=== PATIENT | male | born 1955 | race Caucasian/White ===

== ENCOUNTER 2017-06-18 04:05 | Emergency (ER) | payer OTHER ==
[2017-06-18] MEDS ORDERED: KETOROLAC 60 MG/2 ML VIAL IVP STA (04:17)
[2017-06-18] MEDS ORDERED: SODIUM CHLORIDE 0.9% 1,000 ML IV ONE (04:17)
--- NOTE | 2017-06-18 04:20 | ED Physician Documentation ---
PD HPI ABD PAIN - Stated complaint Stated Complaint: LT FLANK PAIN - Chief complaint Chief Complaint: General - History obtained from History obtained from: Patient, Family - History of Present Illness Timing - duration: Hours Timing - details: Abrupt onset, Still present Quality: Sharp, Pain Location: LUQ Radiation: Left flank Improved by: Laying still Worsened by: Moving, Position, Palpation Associated symptoms: Nausea. No: Vomiting Similar symptoms before: Diagnosis (kidney stone) Recently seen: Not recently seen - Additional information Additional information: 61-year-old male with a prior history of kidney stone went to get out of bed this morning and had severe pain in his left flank. This pain reminded him of kidney stone. He has had pain worse with movement. He states that he felt some of this pain at work today but this did not seem to continue to bother him. 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 Review of Systems Constitutional: denies: Fever Ears: denies: Ear pain Nose: denies: Congestion Throat: denies: Sore throat Respiratory: denies: Cough GI: reports: Abdominal Pain, Nausea. denies: Vomiting : denies: Dysuria, Frequency Skin: denies: Rash Musculoskeletal: reports: Back pain. denies: Neck pain, Extremity pain PD PAST MEDICAL HISTORY - Past Medical History Cardiovascular: Hypertension Respiratory: None Neuro: None Endocrine/Autoimmune: None GI: None : None HEENT: None Psych: None Musculoskeletal: None Derm: None - Past Surgical History Past Surgical History: No - Present Medications Home Medications: Ambulatory Orders Medication Instructions Recorded Confirmed Cyclobenzaprine [Flexeril] 10 mg PO TID PRN #20 tablet 06/18/17 Lisinopril 1 tab PO DAILY 06/18/17 06/18/17 - Allergies Allergies/Adverse Reactions: Allergies Allergy/AdvReac Type Severity Reaction Status Date / Time No Known Drug Allergies Allergy Verified 06/18/17 04:12 - Social History Does the pt smoke?: No Smoking Status: Never smoker Does the pt drink ETOH?: Yes Does the pt have substance abuse?: No - Immunizations Immunizations are current?: Yes PD ED PE NORMAL - Vitals Vital signs reviewed: Yes (hypertension ) - General General: Well developed/nourished, Other (uncomfortable male standing at the bedside is careful about the way he gets onto the bed. ) - HEENT HEENT: Atraumatic, PERRL - Neck Neck: Supple, no meningeal sign - Cardiac Cardiac: RRR, No murmur - Respiratory Respiratory: No respiratory distress, Clear bilaterally - Abdomen Abdomen: Soft, Non tender - Back Back: No CVA TTP. No: Other (left paraspinous muscle tenderness is minimal . ) - Derm Derm: Normal color, No rash - Extremities Extremities: No deformity, No edema - Neuro Neuro: No motor deficit, No sensory deficit - Psych Psych: Normal mood, Normal affect Results - Vitals Vitals: Vital Signs - 24 hr 06/18/17 04:11 Temperature 37.1 C Heart Rate 85 Respiratory 18 Rate Blood Pressure 170/111 H O2 Saturation 98 Oxygen O2 Source Room air - Labs Labs: Laboratory Tests 06/18/17 06/18/17 06/18/17 04:20 04:20 04:50 WBC 5.7 RBC 4.75 Hgb 14.6 Hct 41.8 L MCV 88.1 MCH 30.7 MCHC 34.8 RDW 13.0 Plt Count 204 MPV 7.8 Neut # 3.4 Lymph # 1.3 L [place] # 0.5 Eos # 0.3 Baso # 0.0 Absolute Nucleated RBC 0.00 Nucleated RBCs 0.0 Sodium 138 Potassium 4.4 Chloride 109 Carbon Dioxide 22 Anion Gap 7.0 BUN 30 H Creatinine 0.9 Estimated GFR (MDRD) 86 L Glucose 101 H Calcium 9.1 Total Bilirubin 1.0 AST 19 ALT 20 Alkaline Phosphatase 59 Total Protein 6.6 L Albumin 4.1 Globulin 2.5 Albumin/Globulin Ratio 1.6 Lipase 39 Urine Color YELLOW Urine Clarity CLEAR Urine pH 6.5 Ur Specific [place] 1.015 Urine Protein NEGATIVE Urine Glucose (UA) NEGATIVE Urine Ketones NEGATIVE Urine Occult Blood SMALL H Urine Nitrite NEGATIVE Urine Bilirubin NEGATIVE Urine Urobilinogen 0.2 (NORMAL) Ur Leukocyte Esterase NEGATIVE Urine RBC None Seen Urine WBC 0-3 Ur Squamous Epith Cells NONE SEEN Urine Bacteria None Seen Ur Microscopic Review INDICATED Urine Culture Comments NOT INDICATED - Rads (name of study) CT abd/pel Radiology: Prelim report reviewed (Impression: 1. Small nonobstructing left renal stones without ureteral stone or evidence of obstructive uropathy. 2.Severe left colon diverticulosis without definite acute diverticulitis. Apparent wall thickening of the sigmoid colon is probably related to some degree of chronic diverticulitis in this patient. Consider follow-up colonoscopy to exclude underlying mass in the region. 3. Emphysema. 4. Small supra umbilical fat-containing anterior abdominal wall hernias without apparent complication.), EMP read indepedently, See rad report Procedures - Bedside sono Bedside sono by EMP: With use of bedside ultrasound the left kidney is imaged and there is minimal hydronephrosis and the kidney is sonographically nontender. PD MEDICAL DECISION MAKING - ED course Complexity details: reviewed old records, reviewed results, re-evaluated patient , considered differential, d/w patient, d/w family ED course: 61-year-old male with a prior history of renal lithiasis comes into the emergency department today with symptoms he believes are similar to what he has had previously with a kidney stone. I did note the patient has what appears to be pain with movement and has only mild hydronephrosis on the left side on bedside ultrasound. He does not have much in the way of point tenderness to his back. CT scan of the abdomen and pelvis is obtained to differentiate between renal lithiasis and back pain. An IV is begun the patient given 30 mg of Toradol IV and a liter of saline. The patient has some relief of his pain and it is now clearly evident that the pain is related to movement and located on the left lower back over the iliac crest. The patient appears mildly dehydrated with an elevated BUN and he is administered dexamethasone in addition to the saline. He is dispensed 6 hydrocodone. Departure - Departure Disposition: 01 Home, Self Care Clinical Impression: Lumbar paraspinal muscle spasm, Dehydration Condition: Stable Instructions: ED Spasm Back No Trauma, ED Dehydration Follow-Up: [facility] [Provider Group] Prescriptions: Cyclobenzaprine [Flexeril] 10 mg PO TID PRN #20 tablet PRN Reason: Spasms
[2017-06-18 04:28] LABS: BASOPHILS % (AUTO) 0.9 %; EOSINOPHILS # (AUTO) 0.3 10^3/uL (0.0-0.7); EOSINOPHILS % (AUTO) 6.1 %; HCT - HEMATOCRIT 41.8 % (42.0-52.0); HGB - HEMOGLOBIN 14.6 g/dL (14.0-18.0); LYMPHOCYTES # (AUTO) 1.3 10^3/uL (1.5-3.5); LYMPHOCYTES % (AUTO) 23.5 %; MEAN CORPUSCULAR HEMOGLOBIN 30.7 pg (27.0-31.0); MEAN CORPUSCULAR HGB CONC 34.8 g/dL (32.0-36.0); MEAN CORPUSCULAR VOLUME 88.1 fL (80.0-94.0); MEAN PLATELET VOLUME 7.8 fL (7.4-11.4); MONOCYTES # (AUTO) 0.5 10^3/uL (0.0-1.0); MONOCYTES % (AUTO) 9.6 %; NEUTROPHILS # (AUTO) 3.4 10^3/uL (1.5-6.6); NEUTROPHILS % (AUTO) 59.9 %; RED BLOOD COUNT 4.75 10^6/uL (4.70-6.10); UNCORRECTED WHITE BLOOD COUNT 5.7 x10^3/uL; WHITE BLOOD COUNT 5.7 x10^3/uL (4.8-10.8)
[2017-06-18] MEDS ORDERED: KETOROLAC 30 MG/ML VIAL ONE (04:30)
[2017-06-18 04:39] LABS: ALBUMIN/GLOBULIN RATIO 1.6 (1.0-2.2); CALCIUM 9.1 mg/dL (8.5-10.3); CREATININE 0.9 mg/dL (0.6-1.2); POTASSIUM 4.4 mmol/L (3.5-5.0); TOTAL PROTEIN 6.6 g/dL (6.7-8.2)
[2017-06-18 05:02] LABS: BILIRUBIN,URINE NEGATIVE (NEGATIVE); PH,URINE 6.5 PH (5.0-7.5); UA w/ MICROSCOPIC CHARGE YES
--- NOTE | 2017-06-18 05:05 | CT Preliminary Report ---
Exam: CT Abdomen/Pelvis W/O IMPRESSION: 1. Small nonobstructing left renal stones without ureteral stone or evidence of obstructive uropathy. 2. Severe left colon diverticulosis without definite acute diverticulitis. Apparent wall thickening i n the sigmoid colon is probably related to some degree of chronic diverticulitis in this patient. 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 3. Emphysema. 4. Small supra umbilical fat-containing anterior abdominal wall hernias without apparent complication . [facility] SITE ID: [id number]
[2017-06-18] MEDS ORDERED: DEXAMETHASONE 10 MG/ML VIAL IVP STA (05:08)
--- NOTE | 2017-06-18 05:13 | CT Report ---
EXAM: CT ABDOMEN AND PELVIS (CT KUB) EXAM DATE: 06/18/2017 04:50 AM. CLINICAL HISTORY: Left flank pain. COMPARISONS: None. TECHNIQUE: Routine axial helical CT imaging was performed through the abdomen and pelvis without IV c ontrast. Reconstructions: Coronal and sagittal. In accordance with CT protocol optimization, one or more of the following dose reduction techniques w ere utilized for this exam: automated exposure control, adjustment of mA and/or KV based on patient s ize, or use of iterative reconstructive technique. FINDINGS: Lung Bases: Emphysema. Right Kidney/Ureter: No stones, hydronephrosis, or hydroureter. No perinephric fat stranding. Left Kidney/Ureter: Couple of tiny nonobstructing stones. No ureteral stone or hydronephrosis. Scatte red probable small cysts, poorly evaluated on this non-IV contrast study. Other Solid Organs: Noncontrast images of the solid organs are grossly unremarkable with incidental n ote of calcified granulomas in the liver and spleen as well as tiny specifically benign hypodense foc i in the liver. Gallbladder/Bile Ducts: Unremarkable. Peritoneal Cavity: No free fluid, free air or kevin adenopathy. Bowel is grossly unremarkable with th e exception of severe left colon diverticulosis. No definitive acute diverticulitis with apparent wal l thickening in the sigmoid colon. Pelvic Organs: No bladder stones or wall thickening. Noncontrast images of the visualized pelvic orga ns are unremarkable. Vasculature: Unremarkable. Other: Small anterior abdominal wall supraumbilical fat-containing hernias without apparent complicat ion. IMPRESSION: 1. Small nonobstructing left renal stones without ureteral stone or evidence of obstructive uropathy. 2. Severe left colon diverticulosis without definite acute diverticulitis. Apparent wall thickening i n the sigmoid colon is probably related to some degree of chronic diverticulitis in this patient. 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 3. Emphysema. 4. Small supra umbilical fat-containing anterior abdominal wall hernias without apparent complication . [facility] Referring Provider Line: [phone] SITE ID: [id number]
[2017-06-18] MEDS ORDERED: DEXAMETHASONE 10 MG/ML VIAL ONE (05:18)
[2017-06-18 05:26] LABS: UR CULTURE IF IND NOT INDICATED; WBC,URINE 0-3 /HPF (0-3)
[2017-06-18] MEDS ORDERED: HYDROcod/ACET 5/325 Prepack 6 PO ONE ×2 (05:29→05:45)
[2017-06-18 05:48] VITALS: BP 168/100
== END 2017-06-18 05:48 | disposition home or self-care (01) ==
LOC: ED 04:05
DX: M62.830 Muscle spasm of back (principal); E86.0 Dehydration; I10 Essential (primary) hypertension; Z87.442 Personal history of urinary calculi
CPT/HCPCS: 36415; 74176; 80053; 81001; 81003; 83690; 85025; 87086; 96374; 96375; 99283; 99284

== ENCOUNTER 2019-12-30 04:25 | Emergency (ER) | payer OTHER ==
[2019-12-30] MEDS ORDERED: ONDANSETRON ODT 4 MG TABLET TL STA (04:39)
[2019-12-30] MEDS ORDERED: KETOROLAC 30 MG/ML VIAL IVP STA (04:42)
[2019-12-30] MEDS ORDERED: SODIUM CHLORIDE 0.9% 1,000 ML IV ONE (04:42)
--- NOTE | 2019-12-30 04:46 | ED Physician Documentation ---
PD HPI ABD PAIN - Stated complaint Stated Complaint: SIDE PX - Chief complaint Chief Complaint: Abd Pain - History obtained from History obtained from: Patient - History of Present Illness Timing - onset: Enter time (1700), Yesterday Timing - duration: Hours Timing - details: Gradual onset, Still present, Waxing and waning Quality: Sharp, Pain Location: LUQ Radiation: Left flank Improved by: Other (nothing) Worsened by: Other (nothing) Associated symptoms: Nausea, Vomiting. 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 He thought this was similar to what is had previously with a kidney stone and he has had spikes in his pain.Early this morning he became very uncomfortable and has started vomiting.He does not have any specific modifying factors for the pain. Review of Systems Constitutional: denies: Fever, Chills, Myalgias, Fatigue Eyes: denies: Decreased vision Ears: denies: Ear pain Nose: denies: Rhinorrhea / runny nose, Congestion Throat: denies: Sore throat Cardiac: denies: Chest pain / pressure, Palpitations Respiratory: denies: Dyspnea, Cough, Wheezing GI: reports: Abdominal Pain, Nausea, Vomiting. denies: Constipation, Diarrhea : denies: Dysuria, Frequency Skin: denies: Rash Musculoskeletal: reports: Back pain. denies: Neck pain, Extremity pain Neurologic: denies: Generalized weakness, Focal weakness, Numbness PD PAST MEDICAL HISTORY - Past Medical History Cardiovascular: Hypertension Respiratory: None Endocrine/Autoimmune: None GI: None : None HEENT: None Psych: None Musculoskeletal: None Derm: None - Past Surgical History Past Surgical History: No - Present Medications Home Medications: Ambulatory Orders Medication Instructions Recorded Confirmed lisinopriL [Lisinopril] 1 tab PO DAILY 06/18/17 06/18/17 Hydrocodone/Acetaminophen 1 - 2 each PO Q6H PRN #14 tablet 12/30/19 [Hydrocodon-Acetaminophen 5-325] Ondansetron Odt [Zofran] 4 mg TL Q6H PRN #10 tablet 12/30/19 - Allergies Allergies/Adverse Reactions: Allergies Allergy/AdvReac Type Severity Reaction Status Date / Time No Known Drug Allergies Allergy Verified 06/18/17 04:12 - Social History Does the pt smoke?: No Smoking Status: Never smoker Does the pt drink ETOH?: Yes Does the pt have substance abuse?: No - Immunizations Immunizations are current?: Yes PD ED PE NORMAL - Vitals Vital signs reviewed: Yes (hypertensive) - General General: Alert and oriented X 3, Well developed/nourished, Other (64 y/o male appears to be in pain with grimmace and vomiting. ) - HEENT HEENT: Atraumatic, PERRL, EOMI - Neck Neck: Supple, no meningeal sign, No bony TTP - Cardiac Cardiac: RRR, No murmur - Respiratory Respiratory: No respiratory distress, Clear bilaterally - Abdomen Abdomen: Normal bowel sounds, Soft, Non tender, Non distended, No organomegaly - Back Back: No CVA TTP, No spinal TTP - Derm Derm: Normal color, Warm and dry, No rash - Extremities Extremities: No deformity, No edema - Neuro Neuro: Alert and oriented X 3, performance test architect 2-12 intact, No motor deficit, No sensory deficit, Normal speech Eye Opening: Spontaneous Motor: Obeys Commands Verbal: Oriented GCS Score: 15 - Psych Psych: Normal mood, Normal affect Results - Vitals Vitals: Vital Signs - 24 hr 12/30/19 04:34 Temperature 36.6 C Heart Rate 80 Respiratory 18 Rate Blood Pressure 159/103 H O2 Saturation 100 Oxygen O2 Source Room air - Labs Labs: Laboratory Tests 12/30/19 12/30/19 12/30/19 04:50 04:50 05:03 WBC 5.1 RBC 4.83 Hgb 14.8 Hct 44.5 MCV 92.1 MCH 30.6 MCHC 33.3 RDW 12.7 Plt Count 224 MPV 10.5 Neut # (Auto) 3.4 Lymph # (Auto) 0.9 L [place] # (Auto) 0.6 Eos # (Auto) 0.2 Baso # (Auto) 0.0 Absolute Nucleated RBC 0.00 Nucleated RBC % 0.0 Sodium 136 Potassium 4.3 Chloride 106 Carbon Dioxide 23 Anion Gap 7.0 BUN 22 H Creatinine 0.8 Estimated GFR (MDRD) 97 Glucose 98 Calcium 9.5 Total Bilirubin 0.7 AST 21 ALT 24 Alkaline Phosphatase 69 Total Protein 6.8 Albumin 4.2 Globulin 2.6 Albumin/Globulin Ratio 1.6 Lipase 66 H Urine Color YELLOW Urine Clarity CLEAR Urine pH 6.0 Ur Specific [place] 1.010 Urine Protein NEGATIVE Urine Glucose (UA) NEGATIVE Urine Ketones NEGATIVE Urine Occult Blood MODERATE H Urine Nitrite NEGATIVE Urine Bilirubin NEGATIVE Urine Urobilinogen 0.2 (NORMAL) Ur Leukocyte Esterase NEGATIVE Urine RBC 6-10 H Urine WBC 0-3 Ur Squamous Epith Cells NONE SEEN Urine Bacteria None Seen Ur Microscopic Review INDICATED Urine Culture Comments NOT INDICATED - Rads (name of study) CT ab/pel w Radiology: Prelim report reviewed (Impression: 4 mm left ureterovesicular junction calculus with mild hydronephrosis and perinephric periureteral edema. 2 Diverticulosis. 3 Multiple bilateral renal cysts, left greater than right.), EMP read indepedently, See rad report Procedures - Bedside sono Bedside sono by EMP: With use of bedside ultrasound the left kidney is imaged it is sonographically nontender there is evidence of hydronephrosis present. PD MEDICAL DECISION MAKING - ED course Complexity details: reviewed old records, reviewed results, re-evaluated patient, considered differential, d/w patient ED course: 64-year-old male with a prior history of kidney stone appears to have symptoms consistent with kidney stone again. He does have hydronephrosis with a nontender kidney on the left side on bedside ultrasound exam and I suspect ureteral lithiasis. An IV is begun he is given a liter of saline 30 mg of Toradol and is given for milligrams of Zofran TL.He has good relief of this initially and the CT scan demonstrates a 4 mm stone at the ureterovesicular junction on the left side. Departure - Departure Disposition: 01 Home, Self Care Clinical Impression: Ureterolithiasis Condition: Stable Instructions: ED Stone Renal W Colic Follow-Up: Your, doctor [Other] Mike Magallanes MD [Provider Admit Priv/Credential] - Prescriptions: Hydrocodone/Acetaminophen [Hydrocodon-Acetaminophen 5-325] 1 - 2 each PO Q6H PRN #14 tablet PRN Reason: pain Ondansetron Odt [Zofran] 4 mg TL Q6H PRN #10 tablet PRN Reason: Nausea / Vomiting
[2019-12-30 05:15] LABS: ALBUMIN 4.2 g/dL (3.2-5.5); ALBUMIN/GLOBULIN RATIO 1.6 (1.0-2.2); BILIRUBIN,TOTAL 0.7 mg/dL (0.2-1.0); CALCIUM 9.5 mg/dL (8.5-10.3); CREATININE 0.8 mg/dL (0.6-1.2); TOTAL PROTEIN 6.8 g/dL (6.7-8.2)
[2019-12-30 05:20] LABS: BILIRUBIN,URINE NEGATIVE (NEGATIVE); GLUCOSE, URINE (UA) NEGATIVE (NEGATIVE); KETONES,URINE (UA) NEGATIVE (NEGATIVE); LEUKOCYTE ESTERASE, URINE NEGATIVE (NEGATIVE); NITRITE,URINE NEGATIVE (NEGATIVE); OCCULT BLOOD,URINE MODERATE (NEGATIVE); PROTEIN,URINE NEGATIVE (NEGATIVE); UROBILINOGEN,URINE 0.2 (NORMAL) E.U./dL (NORMAL)
[2019-12-30 05:23] LABS: CLARITY,URINE CLEAR (CLEAR)
--- NOTE | 2019-12-30 05:23 | CT Report ---
Reason: left flank pain Procedure Date: 12/30/2019 Accession Number: [id number] / [id number] Procedure: CT - Abdomen/Pelvis WO CPT Code: Final Report FULL RESULT: EXAM: CT ABDOMEN AND PELVIS (CT KUB) EXAM DATE: 12/30/2019 05:05 AM. CLINICAL HISTORY: Left flank pain. COMPARISONS: ABDOMEN/PELVIS W/O 06/18/2017 4:43 AM. TECHNIQUE: Routine axial helical CT imaging was performed through the abdomen and pelvis without IV contrast. Reconstructions: Coronal and sagittal. In accordance with CT protocol optimization, one or more of the following dose reduction techniques were utilized for this exam: automated exposure control, adjustment of mA and/or KV based on patient size, or use of iterative reconstructive technique. FINDINGS: The lung bases are clear. The visible heart is normal in size. There is no pericardial effusion. Calcified granulomas are seen in the liver and spleen. Multiple small hypoattenuating lesions are seen in the liver, which are too small to characterize but likely represent small cysts. The largest is located at the inferior right hepatic lobe and measures 2 cm, previously 1.4 cm. The gallbladder is normal. There is no biliary dilatation. The unenhanced pancreas and adrenal glands are within normal limits. A 2.2 cm exophytic left renal cyst is again seen. Calcifications along the periphery of the cysts have increased in size. Multiple additional small partially exophytic renal lesions are seen of various attenuations, which may represent proteinaceous or hemorrhagic cysts. A mildly hyperattenuating lesion measuring 2.1 cm in the upper pole of the left kidney has a faint peripheral calcification. A 7 mm exophytic isodense lesion is seen arising from the lower pole of the right kidney. No renal calculi seen. There is no right hydronephrosis. Mild left hydronephrosis and hydroureter seen with associated perinephric and ureteral edema. There is a 4 mm calculus at the left ureterovesicular junction. The bladder is otherwise normal and without wall. Diverticula are seen throughout the colon without evidence of diverticulitis. The appendix is not visible. No pericecal edema is seen. The intestines are normal in caliber and position. There is no evidence of bowel obstruction, free intraperitoneal air, or ascites. A fat-containing umbilical hernia is incidentally seen. There is no lymphadenopathy. The abdominal aorta is normal in course and caliber with minimal atherosclerotic plaque calcifications. The prostate gland is normal. There is no free pelvic fluid. No suspicious lytic or blastic lesions are seen. The visible spinal alignment is maintained. IMPRESSION: 1. 4 mm left ureterovesicular junction calculus with mild right hydroureteronephrosis and perinephric/periureteral edema. 2. Diverticulosis. 3. Multiple bilateral renal cysts, left greater than right. [facility]
[2019-12-30 05:27] LABS: BACTERIA,URINE None Seen /HPF (None Seen); SQUAMOUS EPITHELIAL CELL,UR NONE SEEN (<= Few)
[2019-12-30 05:46] LABS: BASOPHILS % (AUTO) 0.6 %; EOSINOPHILS # (AUTO) 0.2 10^3/uL (0.0-0.7); EOSINOPHILS % (AUTO) 4.1 %; HGB - HEMOGLOBIN 14.8 g/dL (14.0-18.0); LYMPHOCYTES # (AUTO) 0.9 10^3/uL (1.5-3.5); LYMPHOCYTES % (AUTO) 17.9 %; MEAN CORPUSCULAR HEMOGLOBIN 30.6 pg (27.0-31.0); MEAN CORPUSCULAR HGB CONC 33.3 g/dL (32.0-36.0); MEAN CORPUSCULAR VOLUME 92.1 fL (80.0-94.0); MEAN PLATELET VOLUME 10.5 fL (7.4-11.4); MONOCYTES # (AUTO) 0.6 10^3/uL (0.0-1.0); MONOCYTES % (AUTO) 10.9 %; NEUTROPHILS # (AUTO) 3.4 10^3/uL (1.5-6.6); NEUTROPHILS % (AUTO) 66.1 %; PLT - PLATELET COUNT 224 10^3/uL (130-450); RED BLOOD COUNT 4.83 10^6/uL (4.70-6.10); RED CELL DISTRIBUTION WIDTH 12.7 % (12.0-15.0); WHITE BLOOD COUNT 5.1 x10^3/uL (4.8-10.8)
[2019-12-30] MEDS ORDERED: ONDANSETRON 4 MG/2 ML VIAL IVP STA (05:55)
[2019-12-30] MEDS ORDERED: HYDROmorphone 1 MG/ML CARPUJECT IVP STA (05:55)
[2019-12-30] MEDS ORDERED: ONDANSETRON ODT 4 MG Prepack 2 TL PRN (06:04)
[2019-12-30] MEDS ORDERED: HYDROcod/ACET 5/325 Prepack 4 PO STA (06:04)
[2019-12-30 06:10] VITALS: BP 154/93
== END 2019-12-30 06:24 | disposition home or self-care (01) ==
LOC: ED 04:25
DX: I10 Essential (primary) hypertension (principal); N13.2 Hydronephrosis with renal and ureteral calculous obstruction; Q61.02 Congenital multiple renal cysts; Z87.442 Personal history of urinary calculi
CPT/HCPCS: 36415; 74176; 80053; 81001; 83690; 85025; 96361; 96374; 96376; 99284; Q0162; 81003; 87086

== ENCOUNTER 2025-08-09 20:45 | Inpatient (IN) ==
[2025-08-09 21:15] LABS: HCT - HEMATOCRIT 47.1 % (42.0-52.0); HGB - HEMOGLOBIN 15.3 g/dL (14.0-18.0); MEAN PLATELET VOLUME 9.9 fL (7.4-11.4); NRBC ABSOLUTE COUNT (AUTO) 0.00 x10^3/uL; NUCLEATED RED BLOOD CELLS AUTO 0.0 /100WBC; PLT - PLATELET COUNT 244 10^3/uL (130-450); RED CELL DISTRIBUTION WIDTH 13.5 % (12.0-15.0)
--- NOTE | 2025-08-09 21:26 | ED Physician Documentation ---
History of Present Illness Stated complaint Stated Complaint: SOA/CHILLS/FEVER Chief complaint Chief Complaint: General History obtained from History obtained from: Patient History of Present Illness Pain level max: 0 Pain level now: 0 Additonal information Additional information: Patient is a 69-year-old male, otherwise healthy aside from hypertension. States he had emesis x 1 this morning. Then after dinner began to have shaking chills and fever, Tmax 105 at home. No abdominal pain, chest pain, cough, neck pain, headache. No changes in mental status. Nothing makes it better or worse. Took Tylenol prior to coming to the emergency department. Review of Systems Constitutional Reports: Fever and Chills Ears, nose, mouth, and throat Denies: Neck pain Cardiovascular Denies: chest pain or palpitations Musculoskeletal Denies: Back pain or Neck pain Integumentary/Breast Denies: Rash Meds/Allgy Home Medications Ambulatory Orders Medication Instructions Recorded Confirmed lisinopril 10 mg tablet 1 tab PO DAILY 06/18/1705/31 hydrocodone 5 mg-acetaminophen 325 1 - 2 ea PO Q6H PRN pain #14 tabs 04 mg tablet ondansetron 4 mg disintegrating 4 mg translingual Q6H PRN Nausea / 12/30/19 tablet Vomiting #10 tabs Allergies Allergies Allergy/AdvReac Type Severity Reaction Status Date / Time No Known Drug Allergies Allergy Verified 08/09/25 20:55 PFSH Active Problems All Active Problems (Updated 08/09/25 @ 23:30 by Zion Quiles MD) Fever (Acute) Social History Social History Do you feel safe in your home environment?: Yes History of physical, verbal, emotional, or financial abuse?: No Frequency: Occasional Exam Exam Vital Signs: Vital Signs x48h Temp Pulse Resp BP Pulse Ox O2 Flow Rate 08/09/25 23:03 100.8 C H 129 H 16 124/79 95 08/09/25 21:52 38.6 C H 113 H 22 128/94 H 98 08/09/25 21:30 120 H 24 148/97 H 98 08/09/25 21:15 122 H 100 08/09/25 21:09 111 H 22 134/87 H 98 2 08/09/25 20:54 88 24 134/78 H 98 2 08/09/25 20:51 39.8 C H 139 H 22 151/97 H 92 Constitutional Patient is ill-appearing, shaking chills HENMT oropharynx normal moist mucous membranes Eyes PERRL Neck/C-Spine trachea midline Respiratory breath sounds equal bilaterally, normal respiratory effort and clear to auscultation bilaterally Cardiovascular normal heart rate noted and regular rhythm noted Gastrointestinal abdomen normal to inspection, abdomen soft to palpation, nontender to palpation and nondistended Genitourinary no CVA tenderness Extremities no edema Neurology speech normal Psychiatry mental status grossly normal and oriented x3 Skin skin color normal Results Vitals Vitals: Vital Signs - 24 hr 08/09/25 20:51 08/09/25 20:54 08/09/25 21:09 Temperature 39.8 C H Temperature Source Temporal Artery Scan Pulse Rate 139 H 88 111 H Respiratory Rate 22 24 22 Blood Pressure 151/97 H 134/78 H 134/87 H O2 Saturation 92 98 98 O2 Source Room air Nasal cannula Nasal cannula If not protocol: Oxygen Flow, liters/minute 2 2 Pain Intensity 0 08/09/25 21:15 08/09/25 21:30 08/09/25 21:52 Temperature 38.6 C H Temperature Source Pulse Rate 122 H 120 H 113 H Respiratory Rate 24 22 Blood Pressure 148/97 H 128/94 H O2 Saturation 100 98 98 O2 Source Room air Room air If not protocol: Oxygen Flow, liters/minute Pain Intensity 08/09/25 23:03 Temperature 100.8 C H Temperature Source Oral Pulse Rate 129 H Respiratory Rate 16 Blood Pressure 124/79 O2 Saturation 95 O2 Source Room air If not protocol: Oxygen Flow, liters/minute Pain Intensity 0 Oxygen O2 Source Room air EKG (time done) 2123: EKG releavant findings:: EKG personally interpreted by author of this note. Relevant findings are: Rate: Other (115 bpm. Sinus tachycardia. Normal axis. Normal KS interval. Normal QRS. Rate related ST changes. No ST elevation) Labs Labs: Laboratory Tests 08/09/25 08/09/25 08/09/25 21:05 21:22 22:12 WBC 14.0 H RBC 5.40 Hgb 15.3 Hct 47.1 MCV 87.2 MCH 28.3 MCHC 32.5 RDW 13.5 Plt Count 244 MPV 9.9 Neut # (Auto) 11.9 H Lymph # (Auto) 1.0 L [place] # (Auto) 0.9 Eos # (Auto) 0.2 Baso # (Auto) 0.0 Absolute Nucleated RBC 0.00 Nucleated RBC % 0.0 Sodium 137 Potassium 4.5 Chloride 106 Carbon Dioxide 23 Anion Gap 8.0 BUN 25 H Creatinine 1.0 Estimated GFR (MDRD) 74 L Glucose 98 Lactic Acid 1.9 Calcium 10.4 H Total Bilirubin 0.6 AST 17 ALT 21 Alkaline Phosphatase 86 Total Protein 7.0 Albumin 4.3 Globulin 2.7 Albumin/Globulin Ratio 1.6 Urine Color YELLOW Urine Clarity CLEAR Urine pH 6.0 Ur Specific [place] 1.020 Urine Protein NEGATIVE Urine Glucose (UA) NEGATIVE Urine Ketones NEGATIVE Urine Occult Blood NEGATIVE Urine Nitrite NEGATIVE Urine Bilirubin NEGATIVE Urine Urobilinogen 0.2 (NORMAL) Ur Leukocyte Esterase NEGATIVE Urine RBC 0-5 Urine WBC 0-3 Ur Squamous Epith Cells RARE Squamous Urine Bacteria None Seen Urine Culture Comments NOT INDICATED Nasal Adenovirus (PCR) NOT DETECTED Nasal B. parapertussis DNA (PCR) NOT DETECTED Nasal Coronavir 229E PCR NOT DETECTED Nasal Coronavir HKU1 PCR NOT DETECTED Nasal Coronavir NL63 PCR NOT DETECTED Nasal Coronavir OC43 PCR NOT DETECTED Nasal Enterovir/Rhinovir PCR NOT DETECTED Nasal Influenza B PCR NOT DETECTED Nasal Influenza A PCR NOT DETECTED Nasal Parainfluen 1 PCR NOT DETECTED Nasal Parainfluen 2 PCR NOT DETECTED Nasal Parainfluen 3 PCR NOT DETECTED Nasal Parainfluen 4 PCR NOT DETECTED Nasal RSV (PCR) NOT DETECTED Nasal B.pertussis DNA PCR NOT DETECTED Nasal C.pneumoniae (PCR) NOT DETECTED [place] Human Metapneumo PCR NOT DETECTED Nasal M.pneumoniae (PCR) NOT DETECTED Nasal SARS-CoV-2 (PCR) NOT DETECTED Rads (name of study) Chest x-ray: Relevant Findings:: Final report received PD Medical Decision Making ED course Complexity details: reviewed results, re-evaluated patient, considered di fferential and d/w patient ED course: 69-year-old male with rigors tachycardia and fever. No acute findings on chest x-ray, EKG, urinalysis, laboratory testing, respiratory PCR. Chest CT and abdomen/pelvis CT were ordered. 2 L of IV fluid were bolused. He was then started on 250 mL/h. Lactate is normal. Blood cultures drawn. Appears septic. Will likely need admission. Patient signed out to Dr. Holley awaiting CT scan results and reassessment. This document was made in part using voice recognition software. While efforts are made to proofread this document, sound alike and grammatical errors may occur. Discharge Plan Discharge Clinical Impression: Fever Prescriptions: No Action lisinopril 10 MG tablet 1 tab PO DAILY hydrocodone-acetaminophen 1 EACH tablet 1 - 2 ea PO Q6H PRN (Reason: pain) Qty: 14 0RF ondansetron 4 MG tablet,disintegrating 4 mg translingual Q6H PRN (Reason: Nausea / Vomiting) Qty: 10 0RF Print Language: Estonian Stand Alone Forms: PCP List
[2025-08-09 21:28] LABS: ALT ALANINE AMINOTRANSFERASE 21.0 IU/L (10-60); AST ASPARTATE AMINOTRANSFERASE 17.0 IU/L (10-42); BUN - BLOOD UREA NITROGEN 25.0 mg/dL (6-20); CARBON DIOXIDE - CO2 23.0 mmol/L (21-32); CREATININE 1.0 mg/dL (0.6-1.3); GFR - MDRD 74.0 (>89)
--- NOTE | 2025-08-09 21:40 | XRAY Report ---
PROCEDURE: XR Chest 1V INDICATIONS: Sepsis TECHNIQUE: One view of the chest was acquired. COMPARISON: 12/07/2012 FINDINGS: Surgical changes and devices: None. Lungs and pleura: No pleural effusions or pneumothorax. No consolidation. Mediastinum: Mediastinal contours appear normal. Heart size is normal. Bones and chest wall: No suspicious bony lesions. Overlying soft tissues appear unremarkable. IMPRESSION: No acute cardiopulmonary process. No focal consolidation. Reviewed by: Abbe Freeman MD on 08/09/2025 9:36 PM PST Approved by: Abbe Freeman MD on 08/09/2025 9:36 PM PST Station ID: [email or web address]
[2025-08-09] MEDS: SODIUM CHLORIDE 0.9% 1,000 ML IV STA ×3 (21:53→22:42)
[2025-08-09 22:23] LABS: B. PARAPERTUSSIS- RESP PCR PAN NOT DETECTED; B. PERTUSSIS- RESP PCR PANEL NOT DETECTED; C. PNEUMONIAE- RESP PCR PANEL NOT DETECTED; CORONAVIRUS 229E-RESP PCR NOT DETECTED; CORONAVIRUS HKU1-RESP PCR NOT DETECTED; CORONAVIRUS NL63-RESP PCR NOT DETECTED; CORONAVIRUS OC43-RESP PCR NOT DETECTED; HUMAN METAPNEUMOVIRUS NOT DETECTED; INFLUENZA A- RESP PCR PANEL NOT DETECTED; INFLUENZA B - RESP PCR PANEL NOT DETECTED; M. PNEUMONIAE- RESP PCR PANEL NOT DETECTED; PARAINFLUENZA VIRUS 1 NOT DETECTED; PARAINFLUENZA VIRUS 2 NOT DETECTED; PARAINFLUENZA VIRUS 4 NOT DETECTED; RHINOVIRUS/ENTEROVIRUS NOT DETECTED; RSV- RESP PCR PANEL NOT DETECTED; SARS-CoV-2 -RESP PCR PANEL NOT DETECTED
[2025-08-09 22:24] LABS: GLUCOSE, URINE (UA) NEGATIVE (NEGATIVE); KETONES,URINE (UA) NEGATIVE (NEGATIVE); OCCULT BLOOD,URINE NEGATIVE (NEGATIVE); SQUAMOUS EPITHELIAL CELL,UR RARE Squamous (<= Few)
[2025-08-09] MEDS: ONDANSETRON 4 MG/2 ML VIAL IVP STA (22:42)
--- NOTE | 2025-08-09 23:20 | CT Report ---
PROCEDURE: CT Chest W INDICATIONS: fever CONTRAST: Omni 300 100ml TECHNIQUE: After the administration of intravenous contrast, a CT scan of the chest was performed. Images were recorded and evaluated at appropriate window settings. Reformats: axial MIP of the chest, coronal and sagittal. For radiation dose reduction, the following was used: automated exposure control, adjustment of mA and/or kV according to patient size. COMPARISON: CT abdomen and pelvis dated 12/30/2019 FINDINGS: Image quality: Diagnostic. Chest wall and lower neck: No thyroid nodule which requires sonographic follow up. No breast mass. No axillary or supraclavicular adenopathy by size. Lungs and pleura: No consolidation. No pleural effusions. No pneumothorax. No suspicious pulmonary nodules which require follow up. Moderate upper lobe predominant pulmonary emphysema. No septal thickening or nodularity. Visualized airways appear patent. Mediastinum: Heart size is normal. No pericardial effusion. No large vessel abnormality. No mediastinal adenopathy by size criteria. Bones: No aggressive osseous abnormality. Upper Abdomen: Please see separate report for details of the abdomen and pelvis. IMPRESSION: CT chest without acute cardiopulmonary abnormalities. No focal consolidation. Moderate upper lobe predominant pulmonary emphysema. Reviewed by: Abbe Lowe MD on 08/09/2025 11:17 PM PST Approved by: Abbe Lowe MD on 08/09/2025 11:17 PM PST Station ID: [id number]
--- NOTE | 2025-08-09 23:27 | CT Report ---
PROCEDURE: CT Abdomen/Pelvis W INDICATIONS: fever CONTRAST: Omni 300 100ml TECHNIQUE: After the administration of intravenous contrast, a CT scan of the abdomen and pelvis was performed. Images were recorded and evaluated at appropriate window settings. Reformats: coronal and sagittal. For radiation dose reduction, the following was used: automated exposure control, adjustment of mA and/or kV according to patient size. COMPARISON: CT abdomen pelvis dated 12/30/2019 FINDINGS: Image quality: Diagnostic. Lower chest: Small hiatal hernia. Fluid fills the distal esophagus. Liver: No solid mass. Redemonstration of posterior right hepatic lobe hypodensity likely representing a cyst. Calcified hepatic granulomas. Gallbladder: No radiopaque stones or wall thickening. Biliary tree: No intrahepatic or extrahepatic dilation, accounting for age. Spleen: No splenomegaly. Calcified splenic granulomas. Pancreas: No pancreatic ductal dilation. Adrenals: No adrenal nodule. Kidneys and ureters: No hydronephrosis. No renal cystic lesion which requires follow up. No solid mass. Bilateral renal hypodensities likely representing cysts. Stomach, bowel and peritoneum: No gastric or small bowel dilation. No abnormal wall thickening. No pathologic free fluid. Diverticulosis without evidence of diverticulitis. Appendix is not definitively seen but there are no secondary findings for acute appendicitis. Incidental note of a small duodenal diverticulum. Lymph nodes: No central or retroperitoneal adenopathy. Vessels: No infrarenal aortic aneurysm. Patent portal vein. Atherosclerosis. PELVIS Reproductive organs: Unremarkable. Bladder: No abnormal wall thickening. Pelvic lymph nodes: No pelvic adenopathy by size criteria. Bones: No aggressive osseous abnormality. No acute compression fracture. Multilevel spondylosis. Other: Fat-containing umbilical and bilateral inguinal hernias without acute inflammation. IMPRESSION: CT abdomen and pelvis without acute abnormalities. Small hiatal hernia with fluid-filled distal esophagus possibly representing reflux esophagitis. Colonic diverticulosis without acute diverticulitis. Other chronic findings as above. Reviewed by: Abbe Lowe MD on 08/09/2025 11:23 PM PST Approved by: Abbe Lowe MD on 08/09/2025 11:23 PM PST Station ID: [id number]
[2025-08-10 01:21] LABS: HCT - HEMATOCRIT 42.4 % (42.0-52.0); HGB - HEMOGLOBIN 13.6 g/dL (14.0-18.0); MEAN PLATELET VOLUME 9.8 fL (7.4-11.4); NRBC ABSOLUTE COUNT (AUTO) 0.00 x10^3/uL; NUCLEATED RED BLOOD CELLS AUTO 0.0 /100WBC; PLT - PLATELET COUNT 183 10^3/uL (130-450); RED CELL DISTRIBUTION WIDTH 13.7 % (12.0-15.0)
[2025-08-10] MEDS ORDERED: CEFEPIME 2 GM VIAL ONE (01:37)
[2025-08-10] MEDS ORDERED: VANCOMYCIN 1 GM VIAL ONE (01:38)
[2025-08-10] MEDS: VANCOMYCIN INJ 2.25 GM in SODIUM CHLORIDE 0.9% 500 ML IV STA (01:45)
[2025-08-10] MEDS: CEFEPIME 2 GM in SODIUM CHLORIDE 0.9% MINIBAG 100 ML IV STA (01:45)
[2025-08-10] MEDS: MELATONIN 3 MG TABLET PO STA ×2 (04:02→04:09)
[2025-08-10] MEDS: ACETAMINOPHEN 325 MG TABLET PO STA ×2 (04:09→11:10)
--- NOTE | 2025-08-10 05:28 | ED Physician Documentation ---
ED Addendum Addendum Addendum: I received signout/turnover of care on this patient from Dr. Quiles; please see his note for complete H&P. In brief, patient had shaking chills, generalized weakness, fever since earlier tonight (Tmax 103 at home; 39.8 in ED triage). 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 Blood cultures have been drawn, initial blood test results notable for leukocytosis (WBC 14), mildly elevated BUN (25) with normal creatinine, and otherwise unremarkable results including normal LFTs and normal lactate. Normal UA. No abnormalities on chest x-ray. At the time of signout, CTs of chest, abdomen and pelvis (all with IV contrast) are pending. No concerning nor diagnostic findings on the CT scans; specifically, no evidence of infectious process. Incidental note on CT chest of emphysema; patient has not been diagnosed with emphysema/COPD. Also incidental note of hiatal hernia of which patient is aware. Patient is tachycardic throughout my overnight shift. He is given triple- antibiotic coverage (cefepime, vancomycin, metronidazole). Later in my overnight shift, patient had coffee-ground hematemesis (sample sent to lab and is guaiac positive). Patient tells me he has no history of any GI bleeding and no known history of PUD. He says he does not drink on a heavy nor regular basis. During the overnight shift, repeat CBC x 2, WBC initially decreased to 13.7, but subsequently increased to 21. Hemoglobin 15.3 on initial draw, dropped to 13.6 but this was after 2 L IV fluid and on repeat, hemoglobin is stable (13.4). Initial lactate normal, and remained WNL on 2 additional draws during my overnight shift. Further manger of my shift, patient did not have any more nausea/vomiting. He is given 40 mg IV Protonix and 4 mg IV Zofran shortly after the episode of hematemesis. Late in my shift, blood culture results positive for gram-positive's strep (anaerobic), subsequently identified as Streptococcus agalactiae (group B). I then again talk to the patient.. He strongly denies any IV drug use. He denies sore throat. He denies any skin rashes. . Throughout my overnight shift on several reevaluations of patient, there are no patient c/o nor findings to suggest/support meningitis (denies neck pain/stiffness, FROM of neck/no meningismus). Patient is held in ED overnight due to no beds available at [facility]. Plan is to admit to [facility] when bed becomes available. Care of patient is turned over to oncoming ED physician (Dr. Flores) at end of my shift. Discharge Plan Discharge Patient Disposition: 66 [facility] DC/Xfer Condition: Stable Clinical Impression: Fever Prescriptions: No Action lisinopril 10 MG tablet 1 tab PO DAILY Print Language: Croatian
[2025-08-10] MEDS ORDERED: ONDANSETRON 4 MG/2 ML VIAL ONE (06:01)
[2025-08-10 06:15] LABS: HCT - HEMATOCRIT 41.7 % (42.0-52.0); HGB - HEMOGLOBIN 13.4 g/dL (14.0-18.0); MEAN PLATELET VOLUME 10.1 fL (7.4-11.4); PLT - PLATELET COUNT 200 10^3/uL (130-450); RED CELL DISTRIBUTION WIDTH 13.7 % (12.0-15.0)
[2025-08-10 06:21] LABS: ABNORMAL LYMPHS % (MANUAL) 0 %; BASOPHILS # (MANUAL) 0.0 10^3/uL (0-0.1); EOSINOPHILS # (MANUAL) 0.0 10^3/uL (0-0.7)
[2025-08-10] MEDS: ONDANSETRON 4 MG/2 ML VIAL IVP STA (06:29)
[2025-08-10] MEDS: PANTOPRAZOLE 40 MG VIAL IVP STA (06:29)
[2025-08-10 06:38] LABS: INR 1.4 (0.8-1.2); PT - PROTHROMBIN TIME 15.4 secs (9.9-12.6)
[2025-08-10 06:58] LABS: BAND NEUTROPHILS % (MANUAL) 10 %; LYMPHOCYTES # (MANUAL) 1.1 10^3/uL (1.5-3.5); LYMPHOCYTES % (MANUAL) 5 %; MONOCYTES # (MANUAL) 1.1 10^3/uL (0.0-1.0); NEUTROPHILS # (MANUAL) 19.0 10^3/uL (1.5-6.6)
[2025-08-10 06:59] LABS: ALT ALANINE AMINOTRANSFERASE 22.0 IU/L (10-60); AST ASPARTATE AMINOTRANSFERASE 18.0 IU/L (10-42); BUN - BLOOD UREA NITROGEN 24.0 mg/dL (6-20); CARBON DIOXIDE - CO2 21.0 mmol/L (21-32); CREATININE 1.1 mg/dL (0.6-1.3); GFR - MDRD 66.0 (>89); PLATELET ESTIMATE, MANUAL NORMAL (130-450,000) (NORMAL); PLATELET MORPHOLOGY NORMAL APPEARANCE (NORMAL); RBC MORPHOLOGY (MULTIPLE) NORMAL APPEARANCE (NORMAL); WBC MORPHOLOGY (MULTIPLE) NORMAL APPEARANCE (NORMAL)
[2025-08-10] MEDS: LACTATED RINGERS 1,000 ML IV STA (07:49)
[2025-08-10] MEDS: CEFEPIME 2 GM VIAL IVP SCH (07:50)
--- NOTE | 2025-08-10 10:06 | HISTORY & PHYSICAL EXAMINATION ---
Chief Complaint Chief Complaint Chief Complaint: Fevers and shaking chills History of Present Illness Admitted From Admitted From:: ED History Obtained From Records Reviewed: [facility] History obtained from: Patient, ED provider, EMR History of Present Illness HPI Comment/Other: Patient is a 69-year-old male who was previously healthy with a prior diagnosis only of hypertension who had relatively acute onset fevers and shaking chills in the night prior to admission. He finished dinner the night before, and had rapid onset fevers and rigors. This was associated with nausea and vomiting which is still ongoing. No known sick contacts. No prior surgical history. He does get regular colon cancer screening and colonoscopies due to his diverticulosis. His last was done last year. He says he gets it done every 7 years otherwise. He had high-grade fever recorded in the ED. Blood cultures were drawn and are already growing group B strep. He has no history of skin infections or rashes. No meningismus. No urinary symptoms. CT scan of his chest, abdomen and pelvis were negative for an acute processes. He does have a small hiatal hernia with fluid-filled distal esophagus suggestive of reflux esophagitis. Diverticulosis without diverticulitis. Nonvisualized appendix. In the ED, he defervesced. Earlier this morning, he began having softer pressures. He came in with systolics in the 150s initially. They were in the 90s as of this morning. He got 1 L of LR after getting 30 cc/kg fluid resuscitation earlier. This has brought his blood pressure up to the 110s systolic. His primary care doctor is in [place] with [facility]. His GI provider is also with [facility]. Incidentally, he is quite concerned about his diagnosis. He shares that his [id number] of GBS bacteremia. This was several decades ago. He does endorse a DNR status. This comes is somewhat of a surprise to his . We discussed the implications that this is only in affect if he were to get sick enough where he were to . We will keep treating him otherwise up to and including the option of intubation. DNR/full treatment. Will discuss filling out a POLST as he gets near to discharge. Meds/Allgy Home Medications Ambulatory Orders Medication Instructions Recorded Confirmed L. acidophilus-Bifid. animalis 1 cap PO DAILY 08/10/25 08/10/25 ascorbate calcium (vitamin C) 1 tab PO DAILY 08/10/25 08/10/25 cetirizine 1 tab PO DAILY 08/10/2507/30 telmisartan 20 mg tablet 20 mg PO DAILY 08/10/2507/30 Allergies Allergies Allergy/AdvReac Type Severity Reaction Status Date / Time No Known Drug Allergies Allergy Verified 08/10/25 08:59 PFSH Active Problems All Active Problems (Updated 08/10/25 @ 12:47 by Kwame Borges, DO) Hypertension (Chronic) Bacteremia due to group B Streptococcus (Acute) Sepsis (Acute) Fever (Acute) Social History Social History Smoking Status: Unknown if ever smoked If you are a former smoker, when did you quit? (Date/Year): 1994 Do you dip or chew tobacco?: No Do you vape?: No Patient requests smoking cessation consult: No Level: Independent Do you feel safe in your home environment?: Yes History of physical, verbal, emotional, or financial abuse?: No Frequency: Occasional Exam Exam Vital Signs: Vital Signs x48h Temp Pulse Pulse Resp BP BP Pulse Ox 08/10/25 12:00 37.6 C 94 21 125/77 94 08/10/25 11:00 101 H 24 128/80 94 08/10/25 10:53 38 C H 100 24 125/82 94 08/10/25 10:20 100 122/79 95 08/10/25 10:00 100 120/84 95 08/10/25 09:32 100 18 116/79 95 08/10/25 08:52 37.1 C 08/10/25 08:45 101 H 20 121/85 96 08/10/25 08:00 102 H 19 95/56 L 96 08/10/25 07:00 105 H 20 98/55 L 96 08/10/25 06:55 37.9 C 113 H 22 90/49 L 98 08/10/25 06:00 37.0 C 102 H 23 92/50 L 96 08/10/25 05:00 107 H 22 106/67 98 O2 Flow Rate 08/10/25 12:00 08/10/25 11:00 08/10/25 10:53 08/10/25 10:20 08/10/25 10:00 08/10/25 09:32 08/10/25 08:52 08/10/25 08:45 08/10/25 08:00 08/10/25 07:00 08/10/25 06:55 3 08/10/25 06:00 3 08/10/25 05:00 3 GEN: No acute distress. Tired appearing. Well-developed. Appears younger than stated age. HEENT: NC/AT, normal appearance of external ears and nose. Hearing baseline. Cardiac: Regular rate and rhythm, no murmurs. Euvolemic on exam Pulm: Lungs CTA bilaterally, intermittent cough. Coarse lung sounds bilaterally. Abdomen: Soft, nontender. Obese. No taut distention. No rebound tenderness or guarding. Extremities: Moves all 4 extremities equally. Erythematous and warm patch along the anterior aspect of the right lower leg extending from the medial ankle up to the mid kumar. 1-2+ edema in the right medial ankle. No Janeway lesions appreciated. Neuro: Face symmetric, CN II through XII intact grossly. No focal neurologic deficits. Gait exam deferred Psych: Mood euthymic. Affect congruent. Appropriate and cooperative. Sepsis Event Note (H) Evaluation Current Stage of Sepsis: Severe sepsis Possible source of Sepsis: positive Skin/soft tissue Sepsis Criteria Sepsis Criteria: Recorded Temperature greater than 38.3C or Less than 36C, Recorded Heart Rate greater than 90 bpm and WBC count greater than 12,000 or less than 4000 Conclusion/Plan Problem List (1) Sepsis: Qualifiers: Sepsis type: Streptococcus group B Sepsis acute organ dysfunction status: without acute organ dysfunction Qualified Code(s): A40.1 - Sepsis due to streptococcus, group B (2) Bacteremia due to group B Streptococcus: Plan: Patient initially presenting with fever and rigor. Associated nausea and vomiting. Found to have group B streptococcus bacteremia on initial PCR. Pending culture and sensitivity. Patient septic on presentation by virtue of tachycardia, tachypnea, leukocytosis, and fever. No kevin signs of endorgan dysfunction. Normal kidney function. Still satting fine on room air. Bilirubin is not elevated. That said, his blood pressure did fall quite precipitously early in his hospitalization. When he was in the ED, systolics dropped to the low 90s. His lactate remains normal. He received 30 cc/kg fluid resuscitation on arrival +1 additional liter on the morning of admission. Found to be GBS positive on initial blood cultures. Source may be from his right lower extremity. He does have an erythematous right lower extremity. Appears cellulitic. Nonpurulent. No open wounds. Otherwise urine was unremarkable. CT of his chest abdomen and pelvis were unremarkable for occult sources of infection. He has no meningismal signs. He has slight headache this morning, but moves his neck readily. - I will admit the patient to the ICU for the night, he can likely transition to MedSurg status starting tomorrow if he clinically stabilizes. - Will get TTE - Continue Zosyn for today, likely de-escalate to ampicillin - Follow-up cultures and sensitivities - Repeat surveillance cultures In the morning - Continue to monitor blood pressures, at risk for needing vasopressors - Every 2 hours vitals - Continue monitoring right lower extremity, no clear abscess at this time. - Would defer further fluids at this time if his blood pressure were to drop, would start on norepinephrine. (3) Hypertension: Plan: Patient has a history of hypertension. He is on telmisartan 20 mg p.o. daily prior to his hospitalization. Given soft blood pressures seen in the ED, will hold his home antihypertensive at this time. - Hold telmisartan 20 mg, can resume prior to discharge if he is blood pressure stabilizes. Plan I spent a total of 85 minutes in the care of this patient today. This time was spent reviewing labs, vital signs, imaging, interviewing and examining the patient, and discussing plan of care with them and their other care providers. Lab Results 08/10/25 05:58 08/10/25 05:58
--- OUTSIDE RECORDS SUMMARY | 2025-08-10 10:26 | EXTERNAL MEDICAL SUMMARY RPT | Continuity of Care Document ---
Author Organization [facility] Address [address] [place], [place] [address]te [address] [place] [id number] Phone Results/Labs test date facility value unit notes Result panel 1 NUCLEATED RED BLOOD CELLS AUTO 2025-08-09 21:05 [facility] 0.0 /100wbc (missing) BASOPHILS # (AUTO) 2025-08-09 21:05 [facility] 0.0 10 3/ul (missing) NRBC ABSOLUTE COUNT (AUTO) 2025-08-09 21:05 [facility] 0.00 x10 3/ul (missing) EOSINOPHILS # (AUTO) 2025-08-09 21:05 [facility] 0.2 10 3/ul (missing) BILIRUBIN,TOTAL 2025-08-09 21:05 [facility] 0.6 mg/dl As of March 2023 testing method has changed, this may include reference ranges. MONOCYTES # (AUTO) 2025-08-09 21:05 [facility] 0.9 10 3/ul (missing) LYMPHOCYTES # (AUTO) 2025-08-09 21:05 [facility] 1.0 10 3/ul (missing) CREATININE 2025-08-09 21:05 [facility] 1.0 mg/dl As of March 2023 testing method has changed, this may include reference ranges. ALBUMIN/GLOBULIN RATIO 2025-08-09 21:05 [facility] 1.6 (missing) (missing) LACTIC ACID, VENOUS 2025-08-09 21:05 [facility] 1.9 mmol/l Y As of March 2023 testing method has changed, this may include reference ranges. CALCIUM 2025-08-09 21:05 [facility] 10.4 mg/dl As of March 2023 testing method has changed, this may include reference ranges. CHLORIDE 2025-08-09 21:05 [facility] 106 mmol/l As of March 2023 testing method has changed, this may include reference ranges. NEUTROPHILS # (AUTO) 2025-08-09 21:05 [facility] 11.9 10 3/ul (missing) RED CELL DISTRIBUTION WIDTH 2025-08-09 21:05 [facility] 13.5 % (missing) SODIUM 2025-08-09 [facility]05 [facility]/l (missing) WHITE BLOOD COUNT 2025-08-09 21:05 [facility] 14.0 x10 3/ul (missing) HGB - HEMOGLOBIN 2025-08-09 [facility]05 [facility] 15.3 g/dl (missing) AST ASPARTATE AMINOTRANSFERASE 2025-08-09 21:05 [facility] 17 iu/l As of March 2023 testing method has changed, this may include reference ranges. GLOBULIN 2025-08-09 21:05 [facility] 2.7 g/dl (missing) ALT ALANINE AMINOTRANSFERASE 2025-08-09 21:05 [facility] 21 iu/l As of March 2023 testing method has changed, this may include reference ranges. CARBON DIOXIDE - CO2 2025-08-09 21:05 [facility] 23 mmol/l As of March 2023 testing method has changed, this may include reference ranges. PLT - PLATELET COUNT 2025-08-09 21:05 [facility] 244 10 3/ul (missing) BUN - BLOOD UREA NITROGEN 2025-08-09 21:05 [facility] 25 mg/dl As of March 2023 testing method has changed, this may include reference ranges. MEAN CORPUSCULAR HEMOGLOBIN 2025-08-09 21:05 [facility] 28.3 pg (missing) MEAN CORPUSCULAR HGB CONC 2025-08-09 21:05 [facility] 32.5 g/dl (missing) ALBUMIN 2025-08-09 21:05 [facility] 4.3 g/dl As of March 2023 testing method has changed, this may include reference ranges. POTASSIUM 2025-08-09 21:05 [facility] 4.5 mmol/l As of March 2023 testing method has changed, this may include reference ranges. HCT - HEMATOCRIT 2025-08-09 21:05 [facility] 47.1 % (missing) RED BLOOD COUNT 2025-08-09 21:05 [facility] 5.40 10 6/ul (missing) TOTAL PROTEIN 2025-08-09 21:05 [facility] 7.0 g/dl As of March 2023 testing method has changed, this may include reference ranges. GFR - MDRD 2025-08-09 21:05 [facility] 74 (missing) The IDMS-traceable MDRD Study Equation has been validated extensively in and populations between the ages of 18 and 70 with impaired kidney function (eGFR < 60 mL/min/1.73m2) and has shown good performance for patients with all common causes of kidney disease. Although this equation has not been validated for patients older than 70, an MDRD-derived eGFR may still be a useful tool for providers caring for patients older than 70. References: http://www.nkdep. nih.gov/lab-evalu ation/gfr/creatin ine-stand ardization, last updated November 2011. ANION GAP 2025-08-09 21:05 [facility] 8.0 (missing) (missing) ALKALINE PHOSPHATASE 2025-08-09 21:05 [facility] 86 iu/l As of March 2023 testing method has changed, this may include reference ranges. MEAN CORPUSCULAR VOLUME 2025-08-09 21:05 [facility] 87.2 fl (missing) MEAN PLATELET VOLUME 2025-08-09 21:05 [facility] 9.9 fl (missing) GLUCOSE 2025-08-09 21:05 [facility] 98 mg/dl As of March 2023 testing method has changed, this may include reference ranges. Result panel 2 CULTURE, BLOOD #1 2025-08-09 21:08 [facility] AERAEROBIC BOTTLE (missing) (missing) CULTURE, BLOOD #1 2025-08-09 21:08 [facility] ANAANAEROBIC BOTTLE (missing) (missing) CULTURE, BLOOD #1 2025-08-09 21:08 [facility] /08-09-2025/S/ (missing) (missing) CULTURE, BLOOD #1 2025-08-09 21:08 [facility] /08-10-25/S/08-10 (missing) (missing) CULTURE, BLOOD #1 2025-08-09 21:08 [facility] [id number] BY/DATE/TIME (missing) (missing) CULTURE, BLOOD #1 2025-08-09 21:08 [facility] COLLECTEDCOLLECTION BY/DATE/TIME (missing) (missing) CULTURE, BLOOD #1 2025-08-09 21:08 [facility] CULTURE IN PROGRESS. RESULTS TO FOLLOW. (missing) (missing) CULTURE, BLOOD #1 2025-08-09 21:08 [facility] GPCPCHGRAM POSITIVE COCCI IN PAIRS/CHAINS (missing) (missing) CULTURE, BLOOD #1 2025-08-09 21:08 [facility] [id number] STAIN (missing) (missing) CULTURE, BLOOD #1 2025-08-09 21:08 [facility] [id number] STAIN (missing) (missing) CULTURE, BLOOD #1 2025-08-09 21:08 [facility] POS.1POSITIVE BLOOD CULTURE (missing) (missing) CULTURE, BLOOD #1 2025-08-09 21:08 [facility] POSPOSITIVE BLOOD CULTURE (missing) (missing) CULTURE, BLOOD #1 2025-08-09 21:08 [facility] RIGHT IVRIGHT IV (missing) (missing) CULTURE, BLOOD #1 2025-08-09 21:08 [facility] SITE.1COLLECTION SITE (missing) (missing) CULTURE, BLOOD #1 2025-08-09 21:08 [facility] SITECOLLECTION SITE (missing) (missing) CULTURE, BLOOD #1 2025-08-09 21:08 [facility] UNKNOWNUNKNOWN (missing) (missing) Result panel 3 BLOOD CULTURE ID PCR 2025-08-09 21:13 [facility] (missing) (missing) (missing) BLOOD CULTURE ID PCR 2025-08-09 21:13 [facility] -See Blood Culture result for susceptibilities. (missing) (missing) BLOOD CULTURE ID PCR 2025-08-09 21:13 [facility] 08-09-2025/[id number]/2113 (missing) (missing) CULTURE, BLOOD #2 2025-08-09 21:13 [facility] AERAEROBIC BOTTLE (missing) (missing) CULTURE, BLOOD #2 2025-08-09 21:13 [facility] ANAANAEROBIC BOTTLE (missing) (missing) BLOOD CULTURE ID PCR 2025-08-09 21:13 [facility] BCCOLCOLLECTION DATE/TIME (missing) (missing) BLOOD CULTURE ID PCR 2025-08-09 21:13 [facility] [id number] (missing) (missing) BLOOD CULTURE ID PCR 2025-08-09 21:13 [facility] BioFire Blood Culture Identification 2 (BCID2) Panel, a (missing) (missing) CULTURE, BLOOD #2 2025-08-09 21:13 [facility] Blood culture identification by PCR added (missing) (missing) CULTURE, BLOOD #2 2025-08-09 21:13 [facility] [id number] BY/DATE/TIME (missing) (missing) CULTURE, BLOOD #2 2025-08-09 21:13 [facility] COLLECTEDCOLLECTION BY/DATE/TIME (missing) (missing) CULTURE, BLOOD #2 2025-08-09 21:13 [facility] GPCGRAM POSITIVE COCCI (missing) (missing) CULTURE, BLOOD #2 2025-08-09 21:13 [facility] GPCPCHGRAM POSITIVE COCCI IN PAIRS/CHAINS (missing) (missing) CULTURE, BLOOD #2 2025-08-09 21:13 [facility] [id number] STAIN (missing) (missing) CULTURE, BLOOD #2 2025-08-09 21:13 [facility] [id number] STAIN (missing) (missing) CULTURE, BLOOD #2 2025-08-09 21:13 [facility] LFORLEFT FOREARM (missing) (missing) CULTURE, BLOOD #2 2025-08-09 21:13 [facility] LT ARMLT ARM (missing) (missing) CULTURE, BLOOD #2 2025-08-09 21:13 [facility] POS.1POSITIVE BLOOD CULTURE (missing) (missing) CULTURE, BLOOD #2 2025-08-09 21:13 [facility] POSPOSITIVE BLOOD CULTURE (missing) (missing) BLOOD CULTURE ID PCR 2025-08-09 21:13 [facility] Penicillin and ampicillin are drugs of choice; (missing) (missing) CULTURE, BLOOD #2 2025-08-09 21:13 [facility]/08-09-25/2112RH/08-09/2113 (missing) (missing) CULTURE, BLOOD #2 2025-08-09 21:13 [facility]@ 08-09-252112RH@ 08-09-252112 (missing) (missing) CULTURE, BLOOD #2 2025-08-09 21:13 [facility] SITE.1COLLECTION SITE (missing) (missing) CULTURE, BLOOD #2 2025-08-09 21:13 [facility] SITECOLLECTION SITE (missing) (missing) BLOOD CULTURE ID PCR 2025-08-09 21:13 [facility] STR.AGAStreptococcus agalactiae (Group B) (missing) (missing) BLOOD CULTURE ID PCR 2025-08-09 21:13 [facility] Streptococcus agalactiae (Group B) can cause both (missing) (missing) BLOOD CULTURE ID PCR 2025-08-09 21:13 [facility] Streptococcus agalactiae (Group B) is detected by the (missing) (missing) BLOOD CULTURE ID PCR 2025-08-09 21:13 [facility] bacterial and yeast nucleic acids and select genetic (missing) (missing) BLOOD CULTURE ID PCR 2025-08-09 21:13 [facility] blood culture. (missing) (missing) BLOOD CULTURE ID PCR 2025-08-09 21:13 [facility] determinants associated with antimicrobial resistance in (missing) (missing) BLOOD CULTURE ID PCR 2025-08-09 21:13 [facility] early-onset disease, characterized by sepsis and (missing) (missing) BLOOD CULTURE ID PCR 2025-08-09 21:13 [facility] late-onset disease with meningitis and sepsis between day (missing) (missing) BLOOD CULTURE ID PCR 2025-08-09 21:13 [facility] multiplexed nucleic acid test for the simultaneous (missing) (missing) BLOOD CULTURE ID PCR 2025-08-09:13 [facility] nonsusceptible isolates are extremely rare. (missing) (missing) BLOOD CULTURE ID PCR 2025-08-09 21:13 [facility] pneumonia within the first seven days of life, and (missing) (missing) BLOOD CULTURE ID PCR 2025-08-09:13 [facility] pneumonia, meningitis, and endocarditis. (missing) (missing) BLOOD CULTURE ID PCR 2025-08-09 21: [facility] qualitative detection and identification of multiple (missing) (missing) BLOOD CULTURE ID PCR 2025-08-09:13 [facility] seven and three months of age. In adult patients, the (missing) (missing) BLOOD CULTURE ID PCR 2025-08-09: [facility] spectrum of S. agalactiae infections includes BSI, (missing) (missing) Result panel 4 SARS-CoV-2 -RESP PCR PANEL 2025-08-09: [facility] NOT DETECTED (missing) A negative test result for this test indicates that SARS-CoV-2 RNA was not present in the specimen above the limit of detection. Testing performed on the Bio[facility] RP2.1 Panel, a multiplexed nucleic acid repiratory panel. Negative results do not preclude infection with SARS-CoV-2 virus and should not be the sole basis of a patient management decision. In some patients repeat testing at various time points may be necessary for virus detection. False-negative results may arise from improper sample collection, degradation of viral RNA during shipping or storage, the presence of PCR inhibitors, and/or mutation in the SARS-CoV-2 virus. INFLUENZA A- RESP PCR PANEL 2025-08-09: [facility] NOT DETECTED (missing) Influenza A including subtypes H1, H3, and H1-2009 not detected by the [facility] RP2.1 Panel, a multiplexed nucleic acid test intended for the simultaneous qualitative detection and differentiation of nucleic acids from multiple viral and bacterial respiratory organisms. B. PARAPERTUSSIS- RESP PCR HORTON 2025-08-09 21:22 [facility] NOT DETECTED (missing) Negative results for this organism do not preclude infection with this organism and may require additional laboratory testing (e.g., bacterial and viral culture, immunofluorescence, and radiography) when evaluating a patient with possible respiratory tract infection. B. PERTUSSIS- RESP PCR PANEL 2025-08-09 21:22 [facility] NOT DETECTED (missing) Negative results for this organism do not preclude infection with this organism and may require additional laboratory testing (e.g., bacterial and viral culture, immunofluorescence, and radiography) when evaluating a patient with possible respiratory tract infection. C. PNEUMONIAE- RESP PCR PANEL 2025-08-09 21:22 [facility] NOT DETECTED (missing) Negative results for this organism do not preclude infection with this organism and may require additional laboratory testing (e.g., bacterial and viral culture, immunofluorescence, and radiography) when evaluating a patient with possible respiratory tract infection. M. PNEUMONIAE- RESP PCR PANEL 2025-08-09 21:22 [facility] NOT DETECTED (missing) Negative results for this organism do not preclude infection with this organism and may require additional laboratory testing (e.g., bacterial and viral culture, immunofluorescence, and radiography) when evaluating a patient with possible respiratory tract infection. CORONAVIRUS 229E-RESP PCR 2025-08-09 21:22 [facility] NOT DETECTED (missing) Negative results in the setting ofa respiratory illness may be due to infection with pathogens not detected by this test, or lower respiratory tract infection that may not be detected by nasopharyngeal specimen. CORONAVIRUS HKU1-RESP PCR 2025-08-09 21:22 [facility] NOT DETECTED (missing) Negative results in the setting ofa respiratory illness may be due to infection with pathogens not detected by this test, or lower respiratory tract infection that may not be detected by nasopharyngeal specimen. CORONAVIRUS JT63-WCVA PCR 2025-08-09 21:22 [facility] NOT DETECTED (missing) Negative results in the setting ofa respiratory illness may be due to infection with pathogens not detected by this test, or lower respiratory tract infection that may not be detected by nasopharyngeal specimen. CORONAVIRUS CK15-BEZL PCR 2025-08-09 21:22 [facility] NOT DETECTED (missing) Negative results in the setting ofa respiratory illness may be due to infection with pathogens not detected by this test, or lower respiratory tract infection that may not be detected by nasopharyngeal specimen. HUMAN METAPNEUMOVIRUS 2025-08-09 21:22 [facility] NOT DETECTED (missing) Negative results in the setting ofa respiratory illness may be due to infection with pathogens not detected by this test, or lower respiratory tract infection that may not be detected by nasopharyngeal specimen. INFLUENZA B - RESP PCR PANEL 2025-08-09 21:22 [facility] NOT DETECTED (missing) Negative results in the setting ofa respiratory illness may be due to infection with pathogens not detected by this test, or lower respiratory tract infection that may not be detected by nasopharyngeal specimen. PARAINFLUENZA VIRUS 1 2025-08-09 21:22 [facility] NOT DETECTED (missing) Negative results in the setting ofa respiratory illness may be due to infection with pathogens not detected by this test, or lower respiratory tract infection that may not be detected by nasopharyngeal specimen. PARAINFLUENZA VIRUS 2 2025-08-09 21:22 [facility] NOT DETECTED (missing) Negative results in the setting ofa respiratory illness may be due to infection with pathogens not detected by this test, or lower respiratory tract infection that may not be detected by nasopharyngeal specimen. PARAINFLUENZA VIRUS 3 2025-08-09 21:22 [facility] NOT DETECTED (missing) Negative results in the setting ofa respiratory illness may be due to infection with pathogens not detected by this test, or lower respiratory tract infection that may not be detected by nasopharyngeal specimen. PARAINFLUENZA VIRUS 4 2025-08-09 21:22 [facility] NOT DETECTED (missing) Negative results in the setting ofa respiratory illness may be due to infection with pathogens not detected by this test, or lower respiratory tract infection that may not be detected by nasopharyngeal specimen. RHINOVIRUS/ENTEROVI JIMMIE 2025-08-09 21:22 [facility] NOT DETECTED (missing) Negative results in the setting ofa respiratory illness may be due to infection with pathogens not detected by this test, or lower respiratory tract infection that may not be detected by nasopharyngeal specimen. RSV- RESP PCR PANEL 2025-08-09 21:22 [facility] NOT DETECTED (missing) Negative results in the setting ofa respiratory illness may be due to infection with pathogens not detected by this test, or lower respiratory tract infection that may not be detected by nasopharyngeal specimen. ADENOVIRUS - RESP PCR PANEL 2025-08-09 21:22 [facility] NOT DETECTED (missing) Y Negative results in the setting ofa respiratory illness may be due to infection with pathogens not detected by this test, or lower respiratory tract infection that may not be detected by nasopharyngeal specimen. Result panel 5 WBC,URINE 2025-08-09 22:12 [facility] 0-3 /hpf (missing) RBC,URINE 2025-08-09 22:12 [facility] 0-5 /hpf (missing) UROBILINOGEN,URI NE 2025-08-09 22:12 [facility] 0.2 (NORMAL) e.u./dl (missing) SPECIFIC GRAVITY,URINE 2025-08-09 22: [facility] 1.020 (missing) (missing) PH,URINE 2025-08-09 22: [facility] 6.0 ph (missing) CLARITY,URINE 2025-08-09 22: [facility] CLEAR (missing) (missing) LEUKOCYTE ESTERASE, URINE 2025-08-09 22:12 [facility] NEGATIVE (missing) (missing) NITRITE,URINE 2025-08-09: [facility] NEGATIVE (missing) (missing) OCCULT BLOOD,URINE 2025-08-09 22:12 [facility] NEGATIVE (missing) (missing) BILIRUBIN,URINE 2025-08-09 22:12 [facility] NEGATIVE (missing) Bilirubin can be influenced by color interference. Please correlate positive results with clinical presentation GLUCOSE, URINE (UA) 2025-08-09 22:12 [facility] NEGATIVE mg/dl (missing) KETONES,URINE (UA) 2025-08-09 22:12 [facility] NEGATIVE mg/dl (missing) PROTEIN,URINE 2025-08-09 22:12 [facility] NEGATIVE mg/dl (missing) UR CULTURE IF IND 2025-08-09 22:12 [facility] NOT INDICATED (missing) (missing) BACTERIA,URINE 2025-08-09 22:12 [facility] None Seen /hpf (missing) SQUAMOUS EPITHELIAL CELL,UR 2025-08-09:12 [facility] RARE Squamous (missing) (missing) COLOR,URINE 2025-08-09 22:12 [facility] YELLOW (missing) URINE RANDOM Result panel 6 NUCLEATED RED BLOOD CELLS AUTO 2025-08-10 01:17 [facility] 0.0 /100wbc (missing) BASOPHILS # (AUTO) 2025-08-10 01:17 [facility] 0.0 10 3/ul (missing) EOSINOPHILS # (AUTO) 2025-08-10 01:17 [facility] 0.0 10 3/ul (missing) NRBC ABSOLUTE COUNT (AUTO) 2025-08-10 01:17 [facility] 0.00 x10 3/ul (missing) LYMPHOCYTES # (AUTO) 2025-08-10 01:17 [facility] 0.4 10 3/ul (missing) MONOCYTES # (AUTO) 2025-08-10 01:17 [facility] 1.0 10 3/ul (missing) LACTIC ACID, VENOUS 2025-08-10 01: [facility] 1.1 mmol/l Y As of March 2023 testing method has changed, this may include reference ranges. NEUTROPHILS # (AUTO) 2025-08-10 01:17 [facility] 12.3 10 3/ul (missing) HGB - HEMOGLOBIN 2025-08-10 01:17 [facility] 13.6 g /dl (missing) RED CELL DISTRIBUTION WIDTH 2025-08-10 01:17 [facility] 13.7 % (missing) WHITE BLOOD COUNT 2025-08-10 01:17 [facility] 13.7 x10 3/ul (missing) PLT - PLATELET COUNT 2025-08-10 01:17 [facility] 183 10 3/ul (missing) MEAN CORPUSCULAR HEMOGLOBIN 2025-08-10 01:17 [facility] 28.6 pg (missing) MEAN CORPUSCULAR HGB CONC 2025-08-10 01:17 [facility] 32.1 g/dl (missing) RED BLOOD COUNT 2025-08-10 01:17 [facility] 4.75 10 6/ul (missing) HCT - HEMATOCRIT 2025-08-10 01:17 [facility] 42.4 % (missing) MEAN CORPUSCULAR VOLUME 2025-08-10 01:17 [facility] 89.3 fl (missing) MEAN PLATELET VOLUME 2025-08-10 01:17 [facility] 9.8 fl (missing) Result panel 7 ABNORMAL LYMPHS % (MANUAL) 2025-08-10 05:58 [facility] 0 % (missing) BASOPHILS # (MANUAL) 2025-08-10 05:58 [facility] 0.0 10 3/ul (missing) EOSINOPHILS # (MANUAL) 2025-08-10 05:58 [facility] 0.0 10 3/ul (missing) BILIRUBIN,TOTAL 2025-08-10 05:58 [facility] 0.9 mg/dl As of March 2023 testing method has changed, this may include reference ranges. MONOCYTES # (MANUAL) 2025-08-10 05:58 [facility] 1.1 10 3/ul (missing) LYMPHOCYTES # (MANUAL) 2025-08-10 05:58 [facility] 1.1 10 3/ul (missing) CREATININE 2025-08-10 05:58 [facility] 1.1 mg/dl As of March 2023 testing method has changed, this may include reference ranges. ALBUMIN/GLOBULIN RATIO 2025-08-10 05:58 [facility] 1.7 ([facility]) (missing) BAND NEUTROPHILS % (MANUAL) 2025-08-10 05:58 [facility] 10 % (missing) MEAN PLATELET VOLUME 2025-08-10 05:58 [facility] 10.1 fl (missing) TOTAL CELLS COUNTED 2025-08-10 05:58 [facility] 100 ([facility]) (missing) LIPASE 2025-08-10 05:58 [facility] 11 u/l As of March 2023 testing method has changed, this may include reference ranges. CHLORIDE 2025-08-10 05:58 [facility] 111 mmol/l As of March 2023 testing method has changed, this may include reference ranges. GLUCOSE 2025-08-10 05:58 [facility] 120 mg/dl As of March 2023 testing method has changed, this may include reference ranges. HGB - HEMOGLOBIN 2025-08-10 05:58 [facility] 13.4 g/dl (missing) RED CELL DISTRIBUTION WIDTH 2025-08-10 05:58 [facility] 13.7 % (missing) SODIUM 2025-08-10 05:58 [facility] 139 mmol/l (missing) AST ASPARTATE AMINOTRANSFERASE 2025-08-10 05:58 [facility] 18 iu/l As of March 2023 testing method has changed, this may include reference ranges. NEUTROPHILS # (MANUAL) 2025-08-10 05:58 [facility] 19.0 10 3/ul (missing) GLOBULIN 2025-08-10 05:58 [facility] 2.1 g/dl (missing) PLT - PLATELET COUNT 2025-08-10 05:58 [facility] 200 10 3/ul (missing) CARBON DIOXIDE - CO2 2025-08-10 05:58 [facility] 21 mmol/l As of March 2023 testing method has changed, this may include reference ranges. WHITE BLOOD COUNT 2025-08-10 05:58 [facility] 21.1 x10 3/ul (missing) ALT ALANINE AMINOTRANSFERASE 2025-08-10 05:58 [facility] 22 iu/l As of March 2023 testing method has changed, this may include reference ranges. BUN - BLOOD UREA NITROGEN 2025-08-10 05:58 [facility] 24 mg/dl As of March 2023 testing method has changed, this may include reference ranges. MEAN CORPUSCULAR HEMOGLOBIN 2025-08-10 05:58 [facility] 29.0 pg (missing) ALBUMIN 2025-08-10 05:58 [facility] 3.6 g/dl As of March 2023 testing method has changed, this may include reference ranges. MEAN CORPUSCULAR HGB CONC 2025-08-10 05:58 [facility] 32.1 g/dl (missing) POTASSIUM 2025-08-10 05:58 [facility] 4.6 mmol/l As of March 2023 testing method has changed, this may include reference ranges. RED BLOOD COUNT 2025-08-10 05:58 [facility] 4.62 10 6/ul (missing) HCT - HEMATOCRIT 2025-08-10 05:58 [facility] 41.7 % (missing) TOTAL PROTEIN 2025-08-10 05:58 [facility] 5.7 g/dl As of March 2023 testing method has changed, this may include reference ranges. ALKALINE PHOSPHATASE 2025-08-10 05:58 [facility] 63 iu/l As of March 2023 testing method has changed, this may include reference ranges. GFR - MDRD 2025-08-10 05:58 [facility] 66 (reed ng) The IDMS-traceable MDRD Study Equation has been validated extensively in and populations between the ages of 18 and 70 with impaired kidney function (eGFR < 60 mL/min/1.73m2) and has shown good performance for patients with all common causes of kidney disease. Although this equation has not been validated for patients older than 70, an MDRD-derived eGFR may still be a useful tool for providers caring for patients older than 70. References: http://www.nkde p.nih.gov/lab-e valuation/gfr/c reatinine-stand ardization, last updated November 2011. ANION GAP 2025-08-10 05:58 [facility] 7.0 (reed ng) (missing) CALCIUM 2025-08-10 05:58 [facility] 9.3 mg/dl As of March 2023 testing method has changed, this may include reference ranges. MEAN CORPUSCULAR VOLUME 2025-08-10 05:58 [facility] 90.3 fl (missing) DIFFERENTIAL COMMENT 2025-08-10 05:58 [facility] MANUAL DIFFERENTIAL (reed ng) (missing) PLATELET ESTIMATE, MANUAL 2025-08-10 05:58 [facility] NORMAL (130-450,000) (reed ng) (missing) PLATELET MORPHOLOGY 2025-08-10 05:58 [facility] NORMAL APPEARANCE (reed ng) (missing) RBC MORPHOLOGY (MULTIPLE) 2025-08-10 05:58 [facility] NORMAL APPEARANCE (reed ng) (missing) WBC MORPHOLOGY (MULTIPLE) 2025-08-10 05:58 [facility] NORMAL APPEARANCE (reed ng) (missing) Result panel 8 INR 2025-08-10 06:18 [facility] 1.4 (missing) Oral Anticoagulant Indication INR range Venous Thrombosis, P.E. 2.0 - 3.0 Mechanical Valve 2.5 - 3.5 PT - PROTHROMBIN TIME 2025-08-10 06:18 [facility] 15.4 secs (missing) PARTIAL THROMBOPLASTIN TIME 2025-08-10 06:18 [facility] 24.1 secs (missing) Result panel 9 LACTIC ACID, VENOUS 2025-08-10 07:40 [facility] 1.4 mmol/l N As of March 2023 testing method has changed, this may include reference ranges. Social History date description facility
--- NOTE | 2025-08-10 10:33 | ED Physician Documentation ---
ED Addendum Addendum Addendum: The patient's blood pressure did decrease to 87 systolic. He had not received IV fluids for a few hours. We gave bolus of lactated Ringer's 1 L and his blood pressure improved to 112 systolic and heart rate came down from 1 teens to under 100. Preliminary culture or blood PCR is showing group B strep. As such we will want to continue the cefepime initially and may be able to tailor it down but for now the broad coverage. It was due for the next dose at every 8 hours so I ordered that. He was not due yet for repeat doses of metronidazole nor vancomycin and will defer to the hospitalist for those. I did talk with Dr. Borges the hospitalist who states they now had a bed available and would be able to accept the patient. He will be placed in the ICU due to concerns of sepsis and blood pressure lability. They do have an ICU bed. The patient was still alert and appropriate. Still no obvious source per se. Had not had any sore throat. No skin lesions. Denies IV drug use. No recent dental work. The patient is now admitted for further care. Diagnoses: 1. Fever 2. Sepsis 3. Group B strep bacteremia Discharge Plan Discharge Patient Disposition: [facility] DC/Xfer Condition: Stable Clinical Impression: Fever
--- NOTE | 2025-08-10 10:38 | PHARMACY PROGRESS NOTE ---
Best Possible Medication History Admit Date and Time: 08/10/25 [id number] Home Medications Medication Instructions Recorded Confirmed Type L. acidophilus-Bifid. animalis 1 cap PO DAILY 08/10/25 08/10/25 History ascorbate calcium (vitamin C) 1 tab PO DAILY 08/10/25 08/10/25 History cetirizine 1 tab PO DAILY 08/10/2507/30 History telmisartan 20 mg tablet 20 mg PO DAILY 08/10/2507/30 History Processed by: Pharmacy Medications reviewed in ED?: Yes Medication History completed: Yes Patient Interview: Completed Secondary Source(s): Insurance records [facility] Statement: As the person ultimately responsible for medication therapy, providers are able to order a medication from an existing home medication list in [facility] via the "Reconcile Routine" prior to Confirmation of that medication by lan support specialist. Such practice is discouraged except when the physician, in their clinical judgment, deems that a medical need exists for a medication without regard to previous use.
[2025-08-10] MEDS ORDERED: ONDANSETRON ODT 4 MG TABLET TL PRN (10:50)
[2025-08-10] MEDS: KETOROLAC 15 MG/ML VIAL IVP STA (11:10)
[2025-08-10] MEDS: ONDANSETRON 4 MG/2 ML VIAL IVP PRN (11:10)
[2025-08-10] MEDS: HEPARIN 5,000 UNIT/ML VIAL SUBQ SCH (12:13)
[2025-08-10] MEDS: PIPERACILLIN/TAZOBACTAM 3.375 GM in SODIUM CHLORIDE 0.9% MINIBAG 100 ML IV SCH ×2 (12:17→18:01)
[2025-08-10] MEDS ORDERED: FAMOTIDINE 20 MG TABLET PO PRN (16:26)
[2025-08-10] MEDS: ACETAMINOPHEN 325 MG TABLET PO PRN (17:03)
[2025-08-10] MEDS: SODIUM CHLORIDE FLUSH 0.9% 10 ML SYRINGE IVP SCH (17:05)
[2025-08-10] MEDS: FAMOTIDINE 20 MG TABLET PO ONE (17:51)
--- NOTE | 2025-08-10 19:08 | ADVANCE CARE PLANNING NOTE ---
Advance Care Planning Planning Encounter Date: 08/10/25 Time: 15:00 Diagnosis for Encounter (1) Sepsis: Qualifiers: Sepsis type: Streptococcus group B Sepsis acute organ dysfunction status: without acute organ dysfunction Qualified Code(s): A40.1 - Sepsis due to streptococcus, group B (2) Bacteremia due to group B Streptococcus: (3) Hypertension: Encounter Additional Discussion: Patient was asked briefly on admission about his CODE STATUS. Briefly discussed his goals of care. He is typically healthy. He does not have any other terminal conditions. He is quite worried about his current condition, because he had a family member that of group B strep bacteremia. He is clear with his and me that if his heart were to , he would not want resuscitative efforts. He seen people previously that are resuscitated. He knows about the risks of anoxic brain injury and prolonging suffering at the end of life. Otherwise, he feels like he wants all efforts. He initially bulks at the idea of a limited trial of intubation, but his asks him to consider any option while he is still alive. - Patient is DNR, full treatment otherwise - His surrogate decision maker is his , Ayesha - Will discuss POLST as we neared discharge Code Status: Do Not Attempt Resuscitation Time spent on advance care plannin
[2025-08-10] MEDS: MELATONIN 3 MG TABLET PO SCH (19:45)
[2025-08-10] MEDS: LACTATED RINGERS 1,000 ML IV SCH (20:57)
[2025-08-11 07:16] LABS: HCT - HEMATOCRIT 37.3 % (42.0-52.0); HGB - HEMOGLOBIN 12.0 g/dL (14.0-18.0); MEAN PLATELET VOLUME 9.6 fL (7.4-11.4); NRBC ABSOLUTE COUNT (AUTO) 0.00 x10^3/uL; NUCLEATED RED BLOOD CELLS AUTO 0.0 /100WBC; PLT - PLATELET COUNT 142 10^3/uL (130-450); RED CELL DISTRIBUTION WIDTH 13.9 % (12.0-15.0)
[2025-08-11 07:31] LABS: BUN - BLOOD UREA NITROGEN 15.0 mg/dL (6-20); CARBON DIOXIDE - CO2 22.0 mmol/L (21-32); CREATININE 1.0 mg/dL (0.6-1.3); GFR - MDRD 74.0 (>89)
[2025-08-11] MEDS: CETIRIZINE 10 MG TABLET PO SCH (08:29)
[2025-08-11] MEDS: FAMOTIDINE 20 MG TABLET PO SCH (08:29)
--- NOTE | 2025-08-11 11:20 | ECHO Report ---
Version: 1 Study ID: [id number] [id number] Adult Echocardiogram Report Name: TOSHA HAND Study Date: 08/10/2025, 2: 35 PM BP: 126 / 71 mmHg Patient Location: ICU^2303^[id number] HR: 94 bpm : 1955 (MM/DD/YYYY) Gender: Male Height: 60 in Age: 69 Years Weight: 233 lb BSA: 1.99 m² Reason For Study: Gram pos bacteremia Interpretation Summary The visual left ventricular ejection fraction is estimated at 60 to 65%. Global left ventricular systolic function is normal. The right ventricle is moderately dilated. The right ventricular systolic function is moderately decreased. Peak Tricuspid regurgitation velocity is 2.9 m/sec RVSP is mildly elevated 37 mm Hg No vegetation noted, consider CASTILLO if clically indicated. Left Ventricle: There is normal left ventricular wall thickness. The left ventricle is normal in size. The visual left ventricular ejection fraction is estimated at 60 to 65%. Global left ventricular systolic function is normal. The interventricular septum is flattened in systole consistent with right ventricular pressure overload. Right Ventricle: The right ventricle is moderately dilated. The right ventricular systolic function is moderately decreased. Aortic Valve: The aortic valve is trileaflet. Significant calcification on the right coronary cusp. Cannot exclude aortic valve vegetation. No hemodynamically significant valvular aortic stenosis. Trace aortic regurgitation is present. Mitral Valve: The mitral valve leaflets are structurally normal with normal motion. There is no mitral valve vegetation. No evidence of mitral stenosis is seen. There is trace mitral regurgitation. Tricuspid Valve: The tricuspid valve is structurally normal. There is no tricuspid valve vegetation. There is no tricuspid stenosis. Trace tricuspid regurgitation present. Peak Tricuspid regurgitation velocity is 2.9 m/sec RVSP is mildly elevated 37 mm Hg. Pulmonic Valve: The pulmonic valve is not well seen. There is no pulmonic valvular stenosis. Trace pulmonic valvular regurgitation is present. Left Atrium: The left atrium is mildly dilated. There is no systolic flow reversal of the pulmonary veins. Right Atrium: Right atrial size is normal. The inferior vena cava is normal in diameter (<2.1cm) but collapse <50% with sniff (estimated right atrial pressure 5-10mmHg). Atrial Septum: The interatrial septum appears normal, without evidence of shunt by 2D imaging and color Doppler. Aorta: The ascending aorta is normal in size. The transverse arch is normal in size. The descending thoracic aorta appear normal in size and structure. The abdominal aorta is not well seen. Pulmonary Artery: The pulmonary artery is not well visualized, but is probably normal size. Pericardium/Pleural Space: There is no pericardial effusion. Left Ventricle IVSd: 0.74 cm LVIDd: 5.2 cm LVPWd: 0.61 cm LVIDs: 2.8 cm EDV(MOD-sp4): 76.4 ml EDV(sp4-el): 103.8 ml LVLd ap4: 8.4 cm LVAd ap4: 32.0 cm² ESV(MOD-sp4): 31.6 ml ESV(sp4-el): 67.5 ml LVLs ap4: 7.1 cm LVAs ap4: 14.7 cm² EDV(MOD-sp2): 63.7 ml EDV(sp2-el): 70.1 ml LVLd ap2: 8.4 cm LVAd ap2: 26.3 cm² ESV(MOD-sp2): 25.1 ml ESV(sp2-el): 23.7 ml LVLs ap2: 7.2 cm LVAs ap2: 14.1 cm² LVPWs: 1.19 cm Right Ventricle TAPSE: 2.16 cm RV Base: 3.6 cm RV Mid: 3.9 cm Atria LA dimension: 5.7 cm LAV(MOD-sp4): 73.8 ml LAV(MOD-sp2): 70.5 ml Diastolic Function MV dec time: 0.17 sec MV E max rishi: 106.6 cm/sec MV A max rishi: 81.1 cm/sec Aortic Valve LVOT diam: 2.44 cm LV V1 mean P.9 mmHg LV V1 mean: 79.3 cm/sec LV V1 VTI: 23.5 cm Ao V2 VTI: 39.8 cm Ao mean P.6 mmHg Ao V2 mean: 150.0 cm/sec LV V1 max: 107.1 cm/sec LV V1 max P.6 mmHg Ao max P.5 mmHg Ao V2 max: 215.3 cm/sec Tricuspid Valve TR max P.7 mmHg TR max rishi: 294.4 cm/sec TV max P.7 mmHg Aorta Ao root diam: 3.3 cm MMode/2D Measurements & Calculations Ao root diam: 3.3 cm BMI: 45.5 kilograms/m² BSA([facility]): 2.18 m² EDV(MOD-sp2): 63.7 ml EDV(MOD-sp4): 76.4 ml EDV(sp2-el): 70.1 ml EDV(sp4-el): 103.8 ml EF (est.): 56.9 % EF Mod BP: 57.5 % ESV(MOD-sp2): 25.1 ml ESV(MOD-sp4): 31.6 ml ESV(sp2-el): 23.7 ml ESV(sp4-el): 67.5 ml IVSd: 0.74 cm IVSs: 0.98 cm LA A4C-A/L: 23.2 cm² LA dimension: 5.7 cm LA ESV-A/L: 73.6 ml LA Vol Index: 55.1 ml/m² LAV(MOD-sp2): 70.5 ml LAV(MOD-sp4): 73.8 ml LVAd ap2: 26.3 cm² LVAd ap4: 32.0 cm² LVAs ap2: 14.1 cm² LVAs ap4: 14.7 cm² LVIDd: 5.2 cm LVIDs: 2.8 cm LVLd ap2: 8.4 cm LVLd ap4: 8.4 cm LVLs ap2: 7.2 cm LVLs ap4: 7.1 cm LVOT diam: 2.44 cm LVPWd: 0.61 cm LVPWs: 1.19 cm RV Base: 3.6 cm RV Mid: 3.9 cm TAPSE: 2.16 cm Doppler Measurements & Calculations Ao max P.5 mmHg Ao mean P.6 mmHg Ao V2 max: 215.3 cm/sec Ao V2 mean: 150.0 cm/sec Ao V2 VTI: 39.8 cm Lat E/e': 11.2 LV V1 max: 107.1 cm/sec LV V1 max P.6 mmHg LV V1 mean: 79.3 cm/sec LV V1 mean P.9 mmHg LV V1 VTI: 23.5 cm Med E/e': 14.7 MV A max rishi: 81.1 cm/sec MV dec time: 0.17 sec MV DVI-pr: 1.31 MV E max rishi: 106.6 cm/sec PA max P.47 mmHg PA V2 max: 78.6 cm/sec TR max P.7 mmHg TR max rishi: 294.4 cm/sec TV max P.7 mmHg Other Measurements & Calculations Ao root area: 8.7 cm² SHANA(I,D): 2.8 cm² SHANA(V,D): 2.32 cm² EDV(MOD-bp): 83.7 ml EDV(Teich): 129.9 ml EF(MOD-sp2): 60.6 % EF(MOD-sp4): 58.6 % EF(sp2-el): 66.3 % EF(sp4-el): 35.0 % EF(Teich): 76.3 % ESV(Teich): 30.8 ml FS: 45.3 % LVOT area: 4.7 cm² MV E/A: 1.31 SV(LVOT): 109.8 ml SV(MOD-sp4): 44.8 ml SV(sp4-el): 36.3 ml MD Adri De La Fuente 08/11/2025, 11: 19 AM Ordering Physician: Kwame Borges Referring Physician: Zion Quiles Performed By: ADRIANA
--- NOTE | 2025-08-11 13:19 | PROVIDER PROGRESS NOTE ---
Subjective Prog Note Date Prog Note Date: 08/11/25 Prog Note Time: 13:19 Subjective Subjective: Patient is doing remarkably well this morning. Leukocytosis completely resolved. He feels much better. He is able to eat today. He is tolerating normal diet. He is not having any fevers for the last 24 hours. His blood pressure has remained robust without needing any pressor support. He is on maintenance fluids. He had an echocardiogram that was performed yesterday. I cannot see the actual images, but the read is reassuring. No obvious vegetations. Mitral, tricuspid, and aortic valves are all well-visualized. Pulmonic valve not well-visualized. Surveillance blood cultures were drawn this morning. No growth yet. Patient denies any fevers or chills, chest pain, dyspnea, abdominal pain, nausea or vomiting. He is having some pain in his right lower extremity. I was called to bedside later in the day, and patient has new erythematous region in his right proximal lower extremity. Noncontiguous with distal erythema and edema. Notably the proximal area of erythema is not painful. Both are warm to the touch Current Medications Current Medications Current Medications: Current Medications Generic Name Dose Route Start Last Admin Trade Name Freq PRN Reason Stop Dose Admin Acetaminophen 650 mg 08/10/25 10:50 08/11/25 03:34 Acetaminophen 325 Mg Tablet PO 650 mg Q4HR PRN Administration Pain 1 to 4, or Fever Cetirizine HCl 10 mg 08/11/25 09:00 08/11/25 08:29 Cetirizine 10 Mg Tablet PO 10 mg DAILY JARON Administration Famotidine 20 mg 08/11/25 09:00 08/11/25 08:29 Famotidine 20 Mg Tablet PO 20 mg BID JARON Administration Heparin Sodium (Porcine) 5,000 unit 08/10/25 11:00 08/11/25 05:45 Heparin 5,000 Unit/Ml Vial SUBQ Not Given TID JARON Piperacillin Sod/Tazobactam 100 mls @ 25 mls/hr 08/10/25 18:00 08/11/25 09:40 Sod 3.375 gm/ Sodium Chloride IV 25 mls/hr Q8H JARON Administration Lactated Ringer's 1,000 mls @ 100 mls/hr 08/10/25 21:00 08/11/25 06:52 Lr IV 100 mls/hr .Q10H JARON Administration Melatonin 6 mg 08/10/25 20:00 08/10/25 19:45 Melatonin 3 Mg Tablet PO 6 mg Q24H JARON Administration Ondansetron HCl 4 mg 08/10/25 10:50 Ondansetron Odt 4 Mg Tablet TL Q6HR PRN Nausea / Vomiting Ondansetron HCl 4 mg 08/10/25 10:50 08/10/25 11:10 Ondansetron 4 Mg/2 Ml Vial IVP 4 mg Q6HR PRN Administration Nausea / Vomiting Sodium Chloride 10 ml 08/10/25 10:50 Sodium Chloride Flush 0.9% 10 Ml Syringe IVP PRN PRN NEEDED PER PROVIDER ORDERS Sodium Chloride 10 ml 08/10/25 17:00 08/11/25 08:29 Sodium Chloride Flush 0.9% 10 Ml Syringe IVP 10 ml 0100,0900,1700 JARON Administration Objective Vital Signs/Intake & Output Reviewed Vital Signs: Yes Vital Signs: Vital Signs x48h Temp Pulse Resp BP Pulse Ox O2 Flow Rate 08/11/25 13:00 90 22 116/76 94 08/11/25 12:00 36.8 C 87 16 148/108 H 96 08/11/25 11:00 83 24 117/98 H 95 08/11/25 10:00 88 17 124/81 95 08/11/25 09:00 87 22 139/86 H 94 08/11/25 08:00 37.2 C 92 26 H 147/94 H 92 08/11/25 07:00 1 08/11/25 07:00 85 18 96/57 L 95 1 08/11/25 06:00 77 19 94/68 94 1 Intake & Output: Intake & Output 08/08/25 08/09/25 08/10/25 08/11/25 23:59 23:59 23:59 23:59 Intake Total 1999 4240 / 4240 2192 / 2192 Output Total 1250 / 1250 1400 / 1400 Balance 1999 2990 / 2990 792 / 792 Weight (kg) 107.955 kg 106 kg Objective Comments/Other: GEN: No acute distress. Appears younger than stated age. Well-developed. HEENT: NC/AT, normal appearance of external ears and nose. Hearing baseline. Cardiac: Regular rate and rhythm, no murmurs. No extra heart sounds appreciated. Patient is euvolemic generally on exam. Pulm: Lungs CTA bilaterally, no cough, no wheezes. Normal effort on room air. Abdomen: Soft, nontender, nondistended. No rebound or guarding Extremities: Taut 2+ tender pitting edema in the right lower extremity distal to the mid calf through the ankle. Erythematous and warm. A separate new area of erythema and warmth in the lateral proximal right lower extremity from the hip to the mid thigh. Nontender. Neuro: Face symmetric, CN II through XII intact grossly. No focal neurologic deficits. Gait exam deferred Psych: Mood euthymic with congruent affect. Lab Results 08/11/25 07:05 08/11/25 07:05 Other Labs: Lab Results x24hrs 08/11/25 08/10/25 Range/Units 07:05 11:25 WBC 8.3 (4.8-10.8) x10^3/uL RBC 4.16 L (4.70-6.10) 10^6/uL Hgb 12.0 L (14.0-18.0) g/dL Hct 37.3 L (42.0-52.0) % MCV 89.7 (80.0-94.0) fL MCH 28.8 (27.0-31.0) pg MCHC 32.2 (32.0-36.0) g/dL RDW 13.9 (12.0-15.0) % Plt Count 142 (130-450) 10^3/uL MPV 9.6 (7.4-11.4) fL Neut # (Auto) 6.6 (1.5-6.6) 10^3/uL Lymph # (Auto) 0.9 L (1.5-3.5) 10^3/uL [place] # (Auto) 0.6 (0.0-1.0) 10^3/uL Eos # (Auto) 0.1 (0.0-0.7) 10^3/uL Baso # (Auto) 0.0 (0.0-0.1) 10^3/uL Absolute Nucleated RBC 0.00 x10^3/uL Nucleated RBC % 0.0 /100WBC Sodium 139 (135-145) mmol/L Potassium 3.9 (3.5-4.5) mmol/L Chloride 111 (101-111) mmol/L Carbon Dioxide 22 (21-32) mmol/L Anion Gap 6.0 (6-13) BUN 15 (6-20) mg/dL Creatinine 1.0 (0.6-1.3) mg/dL Estimated GFR (MDRD) 74 L (>89) Glucose 89 (74-104) mg/dL Calcium 8.9 (8.5-10.3) mg/dL Nasal Screen MRSA (PCR) NEGATIVE (NEGATIVE) Sepsis Event Note (H) Evaluation Current Stage of Sepsis: Severe sepsis Possible source of Sepsis: positive Skin/soft tissue Sepsis Criteria Sepsis Criteria: Recorded Temperature greater than 38.3C or Less than 36C, Recorded Heart Rate greater than 90 bpm and WBC count greater than 12,000 or less than 4000 Assessment/Plan Problem List (1) Sepsis: Qualifiers: Sepsis acute organ dysfunction status: without acute organ dysfunction Sepsis type: Streptococcus group B Qualified Code(s): A40.1 - Sepsis due to streptococcus, group B (2) Bacteremia due to group B Streptococcus: Impression: Improved, patient no longer with septic physiology. His leukocytosis normalized as of this morning. He has not required pressors. He has been on maintenance fluids. Recall that he initially presented with fevers and rigor. He was nauseous and vomiting. Found to have group B streptococcus on PCR, pending formal culture and sensitivity. Unclear source overall, but suspicious for right lower extremity cellulitis, see below. Urine not suggestive of infection. CT of chest and abdomen pelvis not suggestive of infection. He has no meningismal signs. TTE was completed this admission with good visualization of the tricuspid, mitral, and aortic valves without clear evidence of vegetation. Pulmonic valve was minimally visualized, but no obvious vegetations. - Continue Zosyn awaiting sensitivities, likely de-escalate to something that can be done once daily - Surveillance cultures drawn 08/11, NGTD - Will need 2 weeks of antibiotics from date of negative blood cultures, PICC line to be placed tentatively 08/15 - Transfer out of ICU, MedSurg status - If surveillance blood cultures grow positive, will likely need to transfer out for CASTILLO - Cellulitis workup as below - Supportive care otherwise, continue prnTylenol - discontinue maintenance fluids (3) Cellulitis of right leg: Impression: Patient initially presented with swelling, warmth and erythema in the right distal lower extremity. He had this from the mid calf to the ankle along the medial aspect. He developed new erythema on the afternoon of 08/11 in the proximal right lower extremity from the hip to the mid thigh along the lateral aspect. Proximal area is not particularly tender. The distal area is tender to deep palpation. Initially deferred further imaging because he is going to be on extended course of antibiotics regardless with his bacteremia, however with new areas of redness will get imaging of his right lower extremity. - CT with contrast of the right lower extremity from the hip to the ankle, discussed with radiology - Antibiotics as above - Pain control as above - If he has deep-seated infection, may need to discuss with Ortho about drainage (4) Hypertension: Impression: History of hypertension. 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 - Antihypertensives held in the setting of sepsis on arrival - Consider resuming in the next 1 to 2 days (5) GERD (gastroesophageal reflux disease): Impression: Patient has a small hiatal hernia. History of GERD. He occasionally takes as needed antiacids. - Continue scheduled famotidine 20 mg twice daily (6) Seasonal allergic conjunctivitis: Impression: Chronic problem for the patient. He usually uses Zyrtec for conjunctivitis Discussed that he may consider transitioning to antihistamine eyedrops for less systemic effects in the future. For now he is tolerating well. - Continue cetirizine 10 mg daily I spent a total of 51 minutes in the care of this patient today. This time was spent reviewing labs, vital signs, imaging, interviewing and examining the patient, and discussing plan of care with them and their other care providers. Patient is suffering from gram-positive bacteremia, extreme risk of mortality and morbidity. Reviewed and noted labs and imaging as above. Personal review of CT of the lower extremity
--- NOTE | 2025-08-11 17:34 | CT Report ---
PROCEDURE: CT Lower Extremity RT W INDICATIONS: Cellulitis, bacteremia, eval for deep infection TECHNIQUE: After administration of contrast 3 mm axial sections acquired of the right lower extremity, with coronal and sagittal reformats. For radiation dose reduction, the following was used: automated exposure control, adjustment of mA and/or kV according to patient size. CONTRAST: Omni 300 100ml COMPARISON: None. FINDINGS: Image quality: Diagnostic Bones: Mild hip and partially seen lumbosacral degenerative changes. Mild knee degenerative changes also present. No acute displaced fracture. No dislocation. Soft tissues: Possible soft tissue lesion in the urinary bladder measuring 2 cm. Moderate subcutaneous edema throughout the lower leg, extending to the ankle and foot. No significant knee joint effusion. Unremarkable limited evaluation of the vasculature. Mildly enlarged right groin lymph node is present, measuring 1.4 cm. IMPRESSION: Moderate subcutaneous edema in the lower leg extending to the ankle and foot. No drainable collection. No osseous erosions by CT. Mildly enlarged right groin lymph node, probably reactive. Suspect soft tissue lesion in the urinary bladder measuring 2 cm. Consider cystoscopy and/or bladder protocol pelvic MRI Reviewed by: Jhon Thacker MD on 08/11/2025 5:30 PM PST Approved by: Jhon Thacker MD on 08/11/2025 5:30 PM PST Station ID: [id number]
[2025-08-12 05:06] LABS: HCT - HEMATOCRIT 39.1 % (42.0-52.0); HGB - HEMOGLOBIN 12.7 g/dL (14.0-18.0); MEAN PLATELET VOLUME 9.6 fL (7.4-11.4); NRBC ABSOLUTE COUNT (AUTO) 0.00 x10^3/uL; NUCLEATED RED BLOOD CELLS AUTO 0.0 /100WBC; PLT - PLATELET COUNT 172 10^3/uL (130-450); RED CELL DISTRIBUTION WIDTH 13.8 % (12.0-15.0)
[2025-08-12 05:22] LABS: BUN - BLOOD UREA NITROGEN 11.0 mg/dL (6-20); CARBON DIOXIDE - CO2 26.0 mmol/L (21-32); CREATININE 1.0 mg/dL (0.6-1.3); GFR - MDRD 74.0 (>89)
[2025-08-12] MEDS: VANCOMYCIN INJ 2.5 GM in SODIUM CHLORIDE 0.9% 500 ML IV ONE (10:39)
--- NOTE | 2025-08-12 11:18 | PHARMACY PROGRESS NOTE ---
Vancomycin Therapy Monitoring Patient Information Vancomycin Pt Height (inches): 69 Vancomycin Patient Weight (kg): 106 Vanco Rx Serum Creatinine (mg/dL): 1.0 Vancomycin Therapy BUN (mg/dL): 11 Vancomycin Therapy Calculated Creatinine Cl (ml/min): 103 Concurrent Antibiotics: N/A Vancomycin Therapy Goals Treatment Indication: BACTEREMIA Vancomycin Target Range: Vancomycin AUC Target Range 400-600 mcg*h/ml Assessment of Current Therapy Vancomycin Loading Dose (GM, if applicable): 2.5G Current Vancomycin Maintenance Regimen (if applicable): 1G Q12H Vancomycin Current Regimen: Subtherapeutic Levels Estimated Cmax (Peak, mcg/ml): 22.3 Estimated Cmin (Trough, mcg/ml): 13.5 Estimated AUC (mcg*hr/ml): 422 Plan: Pharmacy recommendation: Continue current regimen Vancomycin Level Recommendation: Level not necessary at this time
--- NOTE | 2025-08-12 13:40 | PROVIDER PROGRESS NOTE ---
Subjective Prog Note Date Prog Note Date: 08/12/25 Prog Note Time: 13:38 Subjective Subjective: Patient's vital signs remained stable. He is CT of his lower extremity was done yesterday that reveals just soft tissue swelling. No abscess. No deep tissue infection. He feels pretty good. He is eager to get home. Surveillance cultures drawn 08/11 are NGTD. His initial cultures grew positive for strep agalactiae which is resistant to clindamycin and tetracycline but otherwise pansensitive. Transition to vancomycin today in anticipation of discharge on daptomycin. Denies any diarrhea. Independent in the room. He ambulates well. He denies any new fevers or chills. Denies dysuria, chest pain, cough or dyspnea. Current Medications Current Medications Current Medications: Current Medications Generic Name Dose Route Start Last Admin Trade Name Freq PRN Reason Stop Dose Admin Acetaminophen 650 mg 08/10/25 10:50 08/11/25 03:34 Acetaminophen 325 Mg Tablet PO 650 mg Q4HR PRN Administration Pain 1 to 4, or Fever Cetirizine HCl 10 mg 08/11/25 09:00 08/12/25 08:03 Cetirizine 10 Mg Tablet PO 10 mg DAILY JARON Administration Famotidine 20 mg 08/11/25 09:00 08/12/25 08:03 Famotidine 20 Mg Tablet PO 20 mg BID JARON Administration Heparin Sodium (Porcine) 5,000 unit 08/10/25 11:00 08/12/25 04:47 Heparin 5,000 Unit/Ml Vial SUBQ Not Given TID JARON Lactated Ringer's 1,000 mls @ 100 mls/hr 08/10/25 21:00 08/12/25 04:47 Lr IV 100 mls/hr .Q10H JARON Administration Vancomycin HCl 1 gm/ Sodium 250 mls @ 167 mls/hr 08/12/25 22:00 Chloride IV Q12H JARON Melatonin 6 mg 08/10/25 20:00 08/11/25 21:26 Melatonin 3 Mg Tablet PO 6 mg Q24H JARON Administration Ondansetron HCl 4 mg 08/10/25 10:50 Ondansetron Odt 4 Mg Tablet TL Q6HR PRN Nausea / Vomiting Ondansetron HCl 4 mg 08/10/25 10:50 08/10/25 11:10 Ondansetron 4 Mg/2 Ml Vial IVP 4 mg Q6HR PRN Administration Nausea / Vomiting Sodium Chloride 10 ml 08/10/25 10:50 Sodium Chloride Flush 0.9% 10 Ml Syringe IVP PRN PRN NEEDED PER PROVIDER ORDERS Sodium Chloride 10 ml 08/10/25 17:00 08/12/25 08:03 Sodium Chloride Flush 0.9% 10 Ml Syringe IVP 10 ml 0100,0900,1700 JARON Administration Objective Vital Signs/Intake & Output Reviewed Vital Signs: Yes Vital Signs: Vital Signs x48h Temp Pulse Resp BP Pulse Ox 08/12/25 13:28 37.1 C 84 18 114/66 94 08/12/25 05:48 36.9 C 82 20 134/84 H 97 Intake & Output: Intake & Output 08/09/25 08/10/25 08/11/25 08/12/25 23:59 23:59 23:59 23:59 Intake Total 1999 4240 / 4240 4141 / 4141 1820 / 1820 Output Total 1250 / 1250 1400 / 1400 Balance 1999 2990 / 2990 2741 / 2741 1820 / 1820 Weight (kg) 107.955 kg 106 kg Objective Comments/Other: GEN: No acute distress. Appears younger than stated age. Well-developed. HEENT: NC/AT, normal appearance of external ears and nose. Hearing baseline. Cardiac: Regular rate and rhythm, no murmurs. No extra heart sounds appreciated. Patient is euvolemic generally on exam. Pulm: Lungs CTA bilaterally, no cough, no wheezes. Normal effort on room air. Abdomen: Soft, nontender, nondistended. No rebound or guarding Extremities: Taut 2+ tender pitting edema in the right lower extremity distal to the mid calf through the ankle. Stable nontender erythema throughout in the proximal right lower extremity along with lateral surface. He is able to stand and bear weight without pain. Neuro: Face symmetric, CN II through XII intact grossly. No focal neurologic deficits. Gait exam deferred Psych: Mood euthymic with congruent affect. Lab Results 08/12/25 04:45 08/12/25 04:45 Other Labs: Lab Results x24hrs 08/12/25 Range/Units 04:45 WBC 6.1 (4.8-10.8) x10^3/uL RBC 4.37 L (4.70-6.10) 10^6/uL Hgb 12.7 L (14.0-18.0) g/dL Hct 39.1 L (42.0-52.0) % MCV 89.5 (80.0-94.0) fL MCH 29.1 (27.0-31.0) pg MCHC 32.5 (32.0-36.0) g/dL RDW 13.8 (12.0-15.0) % Plt Count 172 (130-450) 10^3/uL MPV 9.6 (7.4-11.4) fL Neut # (Auto) 4.0 (1.5-6.6) 10^3/uL Lymph # (Auto) 1.2 L (1.5-3.5) 10^3/uL [place] # (Auto) 0.6 (0.0-1.0) 10^3/uL Eos # (Auto) 0.3 (0.0-0.7) 10^3/uL Baso # (Auto) 0.0 (0.0-0.1) 10^3/uL Absolute Nucleated RBC 0.00 x10^3/uL Nucleated RBC % 0.0 /100WBC Sodium 142 (135-145) mmol/L Potassium 4.1 (3.5-4.5) mmol/L Chloride 111 (101-111) mmol/L Carbon Dioxide 26 (21-32) mmol/L Anion Gap 5.0 L (6-13) BUN 11 (6-20) mg/dL Creatinine 1.0 (0.6-1.3) mg/dL Estimated GFR (MDRD) 74 L (>89) Glucose 101 (74-104) mg/dL Calcium 9.4 (8.5-10.3) mg/dL Sepsis Event Note (H) Evaluation Current Stage of Sepsis: Severe sepsis Possible source of Sepsis: positive Skin/soft tissue Sepsis Criteria Sepsis Criteria: Recorded Temperature greater than 38.3C or Less than 36C, Recorded Heart Rate greater than 90 bpm and WBC count greater than 12,000 or less than 4000 Assessment/Plan Problem List (1) Sepsis: Qualifiers: Sepsis acute organ dysfunction status: without acute organ dysfunction Sepsis type: Streptococcus group B Qualified Code(s): A40.1 - Sepsis due to streptococcus, group B (2) Bacteremia due to group B Streptococcus: Impression: Vital signs remained stable. Patient is off of IV fluids. Tolerating regular diet. His leukocytosis normalized on hospital day 1 has remained normal. Recall that he initially presented with fevers and rigor. He was nauseous and vomiting. Found to have group B streptococcus on PCR, pending formal culture and sensitivity. Unclear source overall, but suspicious for right lower extremity cellulitis, see below. Urine not suggestive of infection. CT of chest and abdomen pelvis not suggestive of infection. He has no meningismal signs. TTE was completed this admission with good visualization of the tricuspid, mitral, and aortic valves without clear evidence of vegetation. Pulmonic valve was minimally visualized, but no obvious vegetations. Initial blood cultures are positive for strep agalactiae, sensitive to vancomycin, penicillin G, ampicillin. Also sensitive to linezolid and levofloxacin with higher PORSCHE. - Change to vancomycin, likely plan for daptomycin at discharge - Surveillance cultures drawn 08/11, NGTD - Will need 2 weeks of antibiotics from date of negative blood cultures, Tentative EOT 08/25 - PICC line to be placed tentatively 08/15 - If surveillance blood cultures grow positive, will likely need to transfer out for [place] - Supportive care otherwise, continue prn Tylenol (3) Cellulitis of right leg: Impression: Improving. He is now able to stand on his right ankle. No significant pain. Erythema has not progressed past the demarcation lines. Patient initially presented with swelling, warmth and erythema in the right distal lower extremity. He had this from the mid calf to the ankle along the medial aspect. He developed new erythema on the afternoon of 08/11 in the proximal right lower extremity from the hip to the mid thigh along the lateral aspect. Proximal area is not particularly tender. The distal area is tender to deep palpation. Initially deferred further imaging because he is going to be on extended course of antibiotics regardless with his bacteremia, however with new areas of redness will get imaging of his right lower extremity. He was also having difficulty putting weight on his right ankle, however this is improved. He was able to stand on this as of 08/12. CT of the right lower extremity showed soft tissue inflammation Without abscess or osseous erosions. No significant joint effusions. Right groin lymph node, suspect reactive - Antibiotics as above - Pain control as above (4) Hypertension: Impression: Has remained normotensive off of [employer]GER antihypertensives. History of hypertension. [employer] on telmisartan 20 mg daily. - Antihypertensives held in the setting of sepsis on arrival - Consider resuming in the next 1 to 2 days (5) GERD (gastroesophageal reflux disease): Impression: Patient has a small hiatal hernia. History of GERD. He occasionally takes as needed antiacids. - Continue scheduled famotidine 20 mg twice daily (6) Bladder mass: Impression: Patient had a 2 cm soft tissue bladder mass that was seen on incidentally on CT of the right lower extremity. Unlikely contributing to his current presentation. - Recommend follow-up cystoscopy on close interval - Will discuss with urology (7) Seasonal allergic conjunctivitis: Impression: Chronic problem for the patient. He usually uses Zyrtec for conjunctivitis Discussed that he may consider transitioning to antihistamine eyedrops for less systemic effects in the future. For now he is tolerating well. - Continue cetirizine 10 mg daily I spent a total of 42 minutes in the care of this patient today. This time was spent reviewing labs, vital signs, imaging, interviewing and examining the patient, and discussing plan of care with them and their other care providers.
[2025-08-12] MEDS: VANCOMYCIN INJ 1 GM in SODIUM CHLORIDE 0.9% 250 ML IV SCH (21:41)
[2025-08-13 04:38] LABS: HCT - HEMATOCRIT 36.4 % (42.0-52.0); HGB - HEMOGLOBIN 12.2 g/dL (14.0-18.0); MEAN PLATELET VOLUME 9.6 fL (7.4-11.4); NRBC ABSOLUTE COUNT (AUTO) 0.00 x10^3/uL; NUCLEATED RED BLOOD CELLS AUTO 0.0 /100WBC; PLT - PLATELET COUNT 174 10^3/uL (130-450); RED CELL DISTRIBUTION WIDTH 13.5 % (12.0-15.0)
[2025-08-13 04:53] LABS: BUN - BLOOD UREA NITROGEN 11.0 mg/dL (6-20); CARBON DIOXIDE - CO2 23.0 mmol/L (21-32); CREATININE 0.8 mg/dL (0.6-1.3); GFR - MDRD 96.0 (>89)
--- NOTE | 2025-08-13 12:38 | PROVIDER PROGRESS NOTE ---
Subjective Prog Note Date Prog Note Date: 08/13/25 Prog Note Time: 12:37 Subjective Subjective: Clinically stable no acute changes. No acute events overnight. Patient today is doing well. I did discuss with him briefly about his incidental finding of his bladder mass. He had many questions. I answered them to the best my ability. He denies any fevers or chills, no diarrhea. No new rashes. No pain from his cellulitic areas in his right lower extremity. He surveillance blood cultures remain clear. He does not have a leukocytosis, he is mildly leukopenic this morning. Current Medications Current Medications Current Medications: Current Medications Generic Name Dose Route Start Last Admin Trade Name Freq PRN Reason Stop Dose Admin Acetaminophen 650 mg 08/10/25 10:50 08/11/25 03:34 Acetaminophen 325 Mg Tablet PO 650 mg Q4HR PRN Administration Pain 1 to 4, or Fever Cetirizine HCl 10 mg 08/11/25 09:00 08/13/25 09:04 Cetirizine 10 Mg Tablet PO 10 mg DAILY JARON Administration Famotidine 20 mg 08/11/25 09:00 08/13/25 09:04 Famotidine 20 Mg Tablet PO 20 mg BID JARON Administration Heparin Sodium (Porcine) 5,000 unit 08/10/25 11:00 08/13/25 04:58 Heparin 5,000 Unit/Ml Vial SUBQ Not Given TID JARON Vancomycin HCl 1 gm/ Sodium 250 mls @ 167 mls/hr 08/12/25 22:00 08/13/25 10:34 Chloride IV 167 mls/hr Q12H JARON Administration Melatonin 6 mg 08/10/25 20:00 08/12/25 21:41 Melatonin 3 Mg Tablet PO 6 mg Q24H JARON Administration Ondansetron HCl 4 mg 08/10/25 10:50 Ondansetron Odt 4 Mg Tablet TL Q6HR PRN Nausea / Vomiting Ondansetron HCl 4 mg 08/10/25 10:50 08/10/25 11:10 Ondansetron 4 Mg/2 Ml Vial IVP 4 mg Q6HR PRN Administration Nausea / Vomiting Sodium Chloride 10 ml 08/10/25 10:50 Sodium Chloride Flush 0.9% 10 Ml Syringe IVP PRN PRN NEEDED PER PROVIDER ORDERS Sodium Chloride 10 ml 08/10/25 17:00 08/13/25 09:04 Sodium Chloride Flush 0.9% 10 Ml Syringe IVP 10 ml 0100,0900,1700 JARON Administration Objective Vital Signs/Intake & Output Reviewed Vital Signs: Yes Vital Signs: Vital Signs x48h Temp Pulse Pulse Resp BP Pulse Ox 08/13/25 08:00 37.1 C 73 18 156/96 H 95 08/13/25 06:42 37.3 C 78 20 163/90 H 96 Intake & Output: Intake & Output 08/10/25 08/11/25 08/12/25 08/13/25 23:59 23:59 23:59 23:59 Intake Total 4240 / 4240 4141 / 4141 4512 / 4512 360 / 360 Output Total 1250 / 1250 1400 / 1400 Balance 2990 / 2990 2741 / 2741 4512 / 4512 360 / 360 Weight (kg) 106 kg Objective Comments/Other: GEN: No acute distress. Appears younger than stated age. Well-developed. HEENT: NC/AT, normal appearance of external ears and nose. Hearing baseline. Cardiac: Regular rate and rhythm, no murmurs. No extra heart sounds appreciated. Patient is euvolemic generally on exam. Pulm: Lungs CTA bilaterally, no cough, no wheezes. Normal effort on room air. Abdomen: Soft, nontender, nondistended. No rebound or guarding Extremities: Erythematous and edematous area of the right lower extremity with less tenderness. 1+ edema. Stable nontender erythema throughout in the proximal right lower extremity along with lateral surface. He is able to stand and bear weight without pain. Neuro: Face symmetric, CN II through XII intact grossly. No focal neurologic deficits. Gait exam deferred Psych: Mood euthymic with congruent affect. Lab Results 08/13/25 04:16 08/13/25 04:16 Other Labs: Lab Results x24hrs 08/13/25 Range/Units 04:16 WBC 4.7 L (4.8-10.8) x10^3/uL RBC 4.17 L (4.70-6.10) 10^6/uL Hgb 12.2 L (14.0-18.0) g/dL Hct 36.4 L (42.0-52.0) % MCV 87.3 (80.0-94.0) fL MCH 29.3 (27.0-31.0) pg MCHC 33.5 (32.0-36.0) g/dL RDW 13.5 (12.0-15.0) % Plt Count 174 (130-450) 10^3/uL MPV 9.6 (7.4-11.4) fL Neut # (Auto) 2.7 (1.5-6.6) 10^3/uL Lymph # (Auto) 1.0 L (1.5-3.5) 10^3/uL [place] # (Auto) 0.5 (0.0-1.0) 10^3/uL Eos # (Auto) 0.4 (0.0-0.7) 10^3/uL Baso # (Auto) 0.0 (0.0-0.1) 10^3/uL Absolute Nucleated RBC 0.00 x10^3/uL Nucleated RBC % 0.0 /100WBC Sodium 140 (135-145) mmol/L Potassium 3.7 (3.5-4.5) mmol/L Chloride 111 (101-111) mmol/L Carbon Dioxide 23 (21-32) mmol/L Anion Gap 6.0 (6-13) BUN 11 (6-20) mg/dL Creatinine 0.8 (0.6-1.3) mg/dL Estimated GFR (MDRD) 96 (>89) Glucose 100 (74-104) mg/dL Calcium 9.3 (8.5-10.3) mg/dL Sepsis Event Note (H) Evaluation Current Stage of Sepsis: Severe sepsis Possible source of Sepsis: positive Skin/soft tissue Sepsis Criteria Sepsis Criteria: Recorded Temperature greater than 38.3C or Less than 36C, Recorded Heart Rate greater than 90 bpm and WBC count greater than 12,000 or less than 4000 Assessment/Plan Problem List (1) Sepsis: Qualifiers: Sepsis type: Streptococcus group B Sepsis acute organ dysfunction status: without acute organ dysfunction Qualified Code(s): A40.1 - Sepsis due to streptococcus, group B (2) Bacteremia due to group B Streptococcus: Impression: Clinically stable for greater than 48 hours. Leukocytosis normalized. His surveillance blood cultures drawn 08/11 are no growth. Planning for PICC line. Continues to improve on vancomycin Recall that he initially presented with fevers and rigor. He was nauseous and vomiting. Found to have group B streptococcus on PCR, pending formal culture and sensitivity. Unclear source overall, but suspicious for right lower extremity cellulitis, see below. Urine not suggestive of infection. CT of chest and abdomen pelvis not suggestive of infection. He has no meningismal signs. TTE was completed this admission with good visualization of the tricuspid, mitral, and aortic valves without clear evidence of vegetation. Pulmonic valve was minimally visualized, but no obvious vegetations. Initial blood cultures are positive for strep agalactiae, sensitive to vancomycin, penicillin G, ampicillin. Also sensitive to linezolid and levofloxacin with higher PORSCHE. - Continue vancomycin, plan to discharge on daptomycin, appreciate case management - Surveillance cultures drawn 08/11, NGTD - Will need 2 weeks of antibiotics from date of negative blood cultures, Tentative EOT 08/25 - PICC line to be placed tentatively 08/15, discussed with anesthesia today - If surveillance blood cultures grow positive, will likely need to transfer out for [place] - Supportive care otherwise, continue prn Tylenol (3) Cellulitis of right leg: Impression: Improving dramatically. Still some erythema, but less edematous. No progression of the erythema. No pain. Patient initially presented with swelling, warmth and erythema in the right distal lower extremity. He had this from the mid calf to the ankle along the medial aspect. He developed new erythema on the afternoon of 08/11 in the proximal right lower extremity from the hip to the mid thigh along the lateral aspect. Proximal area is not particularly tender. The distal area is tender to deep palpation. Initially deferred further imaging because he is going to be on extended course of antibiotics regardless with his bacteremia, however with new areas of redness will get imaging of his right lower extremity. He was also having difficulty putting weight on his right ankle, however this is improved. He was able to stand on this as of 08/12. CT of the right lower extremity showed soft tissue inflammation Without abscess or osseous erosions. No significant joint effusions. Right groin lymph node, suspect reactive - Antibiotics as above (4) Hypertension: Impression: Becoming more hypertensive off of [employer] antihypertensives as his infection is treated. Blood pressures 150s over 90s persistently. History of hypertension. [employer] on telmisartan 20 mg daily. - Will resume formulary equivalent of telmisartan, Losartan 50 mg daily starting today (5) GERD (gastroesophageal reflux disease): Impression: Patient has a small hiatal hernia. History of GERD. He occasionally takes as needed antiacids. - Continue scheduled famotidine 20 mg twice daily (6) Bladder mass: Impression: Patient had a 2 cm soft tissue bladder mass that was seen on incidentally on CT of the right lower extremity. Unlikely contributing to his current presentation. I discussed with the patient extensively the nature of his mass. - Recommend short interval follow-up with urology, will either repeat imaging versus cystoscopy (7) Seasonal allergic conjunctivitis: Impression: Chronic problem for the patient. He usually uses Zyrtec for conjunctivitis Discussed that he may consider transitioning to antihistamine eyedrops for less systemic effects in the future. For now he is tolerating well. - Continue cetirizine 10 mg daily I spent a total of 36 minutes in the care of this patient today. This time was spent reviewing labs, vital signs, imaging, interviewing and examining the patient, and discussing plan of care with them and their other care providers.
[2025-08-13] MEDS: LOSARTAN 50 MG TABLET PO SCH (13:45)
--- NOTE | 2025-08-14 08:48 | PROVIDER PROGRESS NOTE ---
Subjective Prog Note Date Prog Note Date: 08/14/25 Prog Note Time: 08:31 Subjective Subjective: No acute events overnight. Said his right leg was subjectively more warm last night, but no increased pain. Warmth had resided by this morning. He has been trying to elevate it at night when he sleeps. Erythema is unchanged. He still able to bear weight. Otherwise he feels pretty good this morning. Denies fevers or chills, chest pain, dyspnea, abdominal pain, nausea vomiting, or diarrhea. No new skin rashes. Current Medications Current Medications Current Medications: Current Medications Generic Name Dose Route Start Last Admin Trade Name Freq PRN Reason Stop Dose Admin Acetaminophen 650 mg 08/10/25 10:50 08/11/25 03:34 Acetaminophen 325 Mg Tablet PO 650 mg Q4HR PRN Administration Pain 1 to 4, or Fever Cetirizine HCl 10 mg 08/11/25 09:00 08/14/25 08:22 Cetirizine 10 Mg Tablet PO 10 mg DAILY JARON Administration Famotidine 20 mg 08/11/25 09:00 08/14/25 08:21 Famotidine 20 Mg Tablet PO 20 mg BID JARON Administration Heparin Sodium (Porcine) 5,000 unit 08/10/25 11:00 08/14/25 08:22 Heparin 5,000 Unit/Ml Vial SUBQ Not Given TID JARON Vancomycin HCl 1 gm/ Sodium 250 mls @ 167 mls/hr 08/12/25 22:00 08/13/25 23:33 Chloride IV Infused Q12H JARON Infusion Losartan Potassium 50 mg 08/13/25 13:00 08/14/25 08:21 Losartan 50 Mg Tablet PO 50 mg DAILY JARON Administration Melatonin 6 mg 08/10/25 20:00 08/13/25 21:51 Melatonin 3 Mg Tablet PO 6 mg Q24H JARON Administration Ondansetron HCl 4 mg 08/10/25 10:50 Ondansetron Odt 4 Mg Tablet TL Q6HR PRN Nausea / Vomiting Ondansetron HCl 4 mg 08/10/25 10:50 08/10/25 11:10 Ondansetron 4 Mg/2 Ml Vial IVP 4 mg Q6HR PRN Administration Nausea / Vomiting Sodium Chloride 10 ml 08/10/25 10:50 Sodium Chloride Flush 0.9% 10 Ml Syringe IVP PRN PRN NEEDED PER PROVIDER ORDERS Sodium Chloride 10 ml 08/10/25 17:00 08/14/25 08:22 Sodium Chloride Flush 0.9% 10 Ml Syringe IVP 10 ml 0100,0900,1700 [facility] Administration Objective Vital Signs/Intake & Output Reviewed Vital Signs: Yes Vital Signs: Vital Signs x48h Temp Pulse Pulse Resp BP Pulse Ox 08/13/25 08:00 37.1 C 73 18 156/96 H 95 08/13/25 06:42 37.3 C 78 20 163/90 H 96 Intake & Output: Intake & Output 08/11/25 08/12/25 08/13/25 08/14/25 23:59 23:59 23:59 23:59 Intake Total 4141 / 4141 4512 / 4512 2760 / 2760 Output Total 1400 / 1400 Balance 2741 / 2741 4512 / 4512 2760 / 2760 Objective Comments/Other: GEN: No acute distress. Appears younger than stated age. Well-developed. HEENT: NC/AT, normal appearance of external ears and nose. Hearing baseline. Cardiac: Regular rate and rhythm, no murmurs. No JVP elevation sitting upright. Pulm: Lungs CTA bilaterally, no cough, no wheezes. Normal effort on room air. Abdomen: Soft, nontender, nondistended. No rebound or guarding Extremities: Stable erythematous area of the right lower extremity, Nontender. 1+ edema. Improving nontender erythema throughout in the proximal right lower extremity along with lateral surface. He is able to stand and bear weight without pain. : Small 1.5 cm Eczematous patch along the posterior medial scrotum, intermittently pruritic Neuro: Face symmetric, CN II through XII intact grossly. No focal neurologic deficits. Normal gait. Psych: Mood euthymic with congruent affect. Lab Results 08/13/25 04:16 08/13/25 04:16 Other Labs: Lab Results x24hrs 08/13/25 Range/Units 04:16 WBC 4.7 L (4.8-10.8) x10^3/uL RBC 4.17 L (4.70-6.10) 10^6/uL Hgb 12.2 L (14.0-18.0) g/dL Hct 36.4 L (42.0-52.0) % MCV 87.3 (80.0-94.0) fL MCH 29.3 (27.0-31.0) pg MCHC 33.5 (32.0-36.0) g/dL RDW 13.5 (12.0-15.0) % Plt Count 174 (130-450) 10^3/uL MPV 9.6 (7.4-11.4) fL Neut # (Auto) 2.7 (1.5-6.6) 10^3/uL Lymph # (Auto) 1.0 L (1.5-3.5) 10^3/uL [place] # (Auto) 0.5 (0.0-1.0) 10^3/uL Eos # (Auto) 0.4 (0.0-0.7) 10^3/uL Baso # (Auto) 0.0 (0.0-0.1) 10^3/uL Absolute Nucleated RBC 0.00 x10^3/uL Nucleated RBC % 0.0 /100WBC Sodium 140 (135-145) mmol/L Potassium 3.7 (3.5-4.5) mmol/L Chloride 111 (101-111) mmol/L Carbon Dioxide 23 (21-32) mmol/L Anion Gap 6.0 (6-13) BUN 11 (6-20) mg/dL Creatinine 0.8 (0.6-1.3) mg/dL Estimated GFR (MDRD) 96 (>89) Glucose 100 (74-104) mg/dL Calcium 9.3 (8.5-10.3) mg/dL Sepsis Event Note (H) Evaluation Current Stage of Sepsis: Severe sepsis Possible source of Sepsis: positive Skin/soft tissue Sepsis Criteria Sepsis Criteria: Recorded Temperature greater than 38.3C or Less than 36C, Recorded Heart Rate greater than 90 bpm and WBC count greater than 12,000 or less than 4000 Assessment/Plan Problem List (1) Sepsis: Qualifiers: Sepsis type: Streptococcus group B Sepsis acute organ dysfunction status: without acute organ dysfunction Qualified Code(s): A40.1 - Sepsis due to streptococcus, group B (2) Bacteremia due to group B Streptococcus: Impression: Continues to subjectively improvement vancomycin. Continues to make good urine. Lab holiday today. Planning for PICC placement 08/15. Recall that he initially presented with fevers and rigor. He was nauseous and vomiting. Found to have group B streptococcus on PCR, pending formal culture and sensitivity. Unclear source overall, but suspicious for right lower extremity cellulitis, see below. Urine not suggestive of infection. CT of chest and abdomen pelvis not suggestive of infection. He has no meningismal signs. Found to have group B streptococcus on blood cultures. TTE was completed this admission with good visualization of the tricuspid, mitral, and aortic valves without clear evidence of vegetation. Pulmonic valve was minimally visualized, but no obvious vegetations. He was initially worsening (Fever and hypotension) on cefepime and transitioned to vancomycin monotherapy. Sensitivities eventually came back sensitive to vancomycin, penicillin G, ampicillin. Also sensitive to linezolid and levofloxacin with higher PORSCHE. - Continue vancomycin, plan to discharge on daptomycin, appreciate case management o Technically should be sensitive to ceftriaxone if alternative regimen needed - Monitor CBC and BMP a.m. - Surveillance cultures drawn 08/11, NGTD - Will need 2 weeks of antibiotics from date of negative blood cultures, Tentative EOT 08/25 - PICC line to be placed tentatively 08/15, Orders have been placed - If surveillance blood cultures grow positive, will likely need to transfer out for [place] - Supportive care otherwise, continue prn Tylenol - Cellulitis as below (3) Cellulitis of right leg: Impression: Continues to have minimal to no pain. Still very swollen in the distal extremity. Erythema proximal is improving. On initial presentation, had swelling, warmth and erythema in the right distal lower extremity. He had this from the mid calf to the ankle along the medial aspect. He developed new erythema on the afternoon of 08/11 in the proximal right lower extremity from the hip to the mid thigh along the lateral aspect. Proximal area is not particularly tender. The distal area was tender to deep palpation. He was reporting on 08/11 pain with weightbearing, but this is resolved the following day. CT of the right lower extremity showed soft tissue inflammation Without abscess or osseous erosions. No significant joint effusions. Right groin lymph node, suspect reactive - Antibiotics as above - Leg elevation at night - Compression stockings if he can tolerate, With this will DC SQH - Continue to ambulate frequently, patient amenable (4) Hypertension: Impression: Was becoming hypertensive, ARB was resumed on 08/13. Blood pressure is better controlled. History of hypertension. [employer] on telmisartan 20 mg daily. - Continue formulary ARB Losartan 50 mg daily (5) GERD (gastroesophageal reflux disease): Impression: Patient has a small hiatal hernia. History of GERD. He occasionally takes as needed antacids - Continue scheduled famotidine 20 mg twice daily (6) Bladder mass: Impression: Patient had a 2 cm soft tissue bladder mass that was seen on incidentally on CT of the right lower extremity. Unlikely contributing to his current presentation. I discussed with the patient extensively the nature of his mass. - Recommend short interval follow-up with urology, will either repeat imaging versus cystoscopy - Dr. Lackey was off over the weekend, would recommend calling him 08/15 to confirm follow-up plan (7) Seasonal allergic conjunctivitis: Impression: Chronic problem for the patient. He usually uses Zyrtec for conjunctivitis Discussed that he may consider transitioning to antihistamine eyedrops for less systemic effects in the future. For now he is tolerating well. - Continue cetirizine 10 mg daily I spent a total of 42 minutes in the care of this patient today. This time was spent reviewing labs, vital signs, imaging, interviewing and examining the patient, and discussing plan of care with them and their other care providers. Managing 1 or more acute illnesses with threat to life or bodily function. On vancomycin requiring intensive monitoring for toxicity. Patient endorses a DNR status this hospitalization, POLST filled out today. [id number]
[2025-08-15 04:45] LABS: HCT - HEMATOCRIT 39.9 % (42.0-52.0); HGB - HEMOGLOBIN 12.7 g/dL (14.0-18.0); MEAN PLATELET VOLUME 9.5 fL (7.4-11.4); NRBC ABSOLUTE COUNT (AUTO) 0.00 x10^3/uL; NUCLEATED RED BLOOD CELLS AUTO 0.0 /100WBC; PLT - PLATELET COUNT 206 10^3/uL (130-450); RED CELL DISTRIBUTION WIDTH 13.3 % (12.0-15.0)
[2025-08-15 05:03] LABS: BUN - BLOOD UREA NITROGEN 11.0 mg/dL (6-20); CARBON DIOXIDE - CO2 22.0 mmol/L (21-32); CREATININE 0.9 mg/dL (0.6-1.3); GFR - MDRD 83.0 (>89)
[2025-08-15] MEDS: LORazepam 2 MG/ML VIAL IVP ONE (09:34)
--- NOTE | 2025-08-15 10:27 | Discharge Summary ---
"Discharge Summary Admit Date: 08/10/25 Discharge Date: 08/17/25 Discharging Provider: Dr. Vikki Cortes Primary Care Provider: Matias Ren Code Status: Do Not Attempt Resuscitation Discharge Facility Name: Home, self care DIAGNOSES Discharge Diagnoses with Status of Each Condition: Sepsis, bacteremia due to group B streptococcuspatient presented with fevers, chills, leukocytosis as high as 21.1. Blood cultures 2 out of 2 are positive for Streptococcus Agalactiae on 08/09. Repeat blood cultures were negative on 08/11, and echo did not show any obvious vegetations. Patient will need 2 weeks of antibiotics from date of negative blood cultures, tentative end of day 08/25. Received vancomycin while here. Susceptibilities reviewed. Will be discharged home on daily 2 g of Rocephin. PICC line was placed 08/15. Delay in discharge due to authorization set up for outpatient antibiotic therapy, which has now been successfully set up. Cellulitis of right legswelling, erythema noted. May be the source of the above sepsis and bacteremia. CT showed soft tissue inflammation. Duplex ultrasound was negative for DVT. Continue leg elevation, compression stockings, complete antibiotic course. Hypertensioncontinue telmisartan. GERDcontinue Pepcid twice daily. Bladder masspatient has a 2 cm soft tissue bladder mass. Recommend short-term follow-up with urology. Dr. Lackey follow-up information was provided. HPI History of Present Illness: Per Dr. Borges: Patient is a 69-year-old male who was previously healthy with a prior diagnosis only of hypertension who had relatively acute onset fevers and shaking chills in the night prior to admission. He finished dinner the night before, and had rapid onset fevers and rigors. This was associated with nausea and vomiting which is still ongoing. No known sick contacts. No prior surgical history. He does get regular colon cancer screening and colonoscopies due to his diverticulosis. His last was done last year. He says he gets it done every 7 years otherwise. He had high-grade fever recorded in the ED. Blood cultures were drawn and are already growing group B strep. He has no history of skin infections or rashes. No meningismus. No urinary symptoms. CT scan of his chest, abdomen and pelvis were negative for an acute processes. He does have a small hiatal hernia with fluid-filled distal esophagus suggestive of reflux esophagitis. Diverticulosis without diverticulitis. Nonvisualized appendix. In the ED, he defervesced. Earlier this morning, he began having softer pressures. He came in with systolics in the 150s initially. They were in the 90s as of this morning. He got 1 L of LR after getting 30 cc/kg fluid resuscitation earlier. This has brought his blood pressure up to the 110s systolic. His primary care doctor is in [place] with [facility]. His GI provider is also with [employer]. Incidentally, he is quite concerned about his diagnosis. He shares that his [id number] of GBS bacteremia. This was several decades ago. He does endorse a DNR status. This comes is somewhat of a surprise to his . We discussed the implications that this is only in affect if he were to get sick enough where he were to . We will keep treating him otherwise up to and including the option of intubation. DNR/full treatment. Will discuss filling out a POLST as he gets near to discharge. CONSULTS | PROCEDURES Procedures: Venous duplexno deep venous thrombosis of right lower [id number]. Lower extremity CT11/13moderate subcutaneous edema in lower leg extending to the ankle and foot with no drainable collection. Abdomen/pelvis CT11/11CT abdomen pelvis without acute abnormalities, small hiatal hernia with fluid-filled distal esophagus. Chest CT11/11chest CT without acute cardiopulmonary abnormalities with no focal consolidation. Blood cultures x 211/11positive for group B strep. Repeat blood cultures x 211/13no growth to date. [id number] of 60 to 65%, right ventricle is moderately dilated, no vegetations noted. HOSPITAL COURSE Hospital Course: Patient is a 69-year-old male with a history of hypertension who presented for rigors, shaking, chills. He was septic on presentation with fevers, leukocytosis, tachypnea. Blood cultures were 2 out of 2 positive for group B strep. He had erythema noted of his right lower extremity. CT was done which showed no drainable abscess. Venous duplex was also completed which showed no acute DVT. He was started on a vancomycin with improvement of his symptoms. His cellulitis continued to improve. Echocardiogram was done with no obvious vegetations noted. He will need extended course of IV antibiotics, and there was a delay in discharge due to having authorization to have this set up. He has opted for home infusions, and this was set up with intake time tomorrow morning at 08/18. He had a PICC line placed, and will be discharged home in stable condition and advised close follow-up with his primary care provider. Incidentally, a bladder mass is noted, which she will need outpatient urology follow-up with. Follow-up information for Dr. Lackey was placed in his discharge instructions. ALLERGIES Allergies Allergy/AdvReac Type Severity Reaction Status Date / Time No Known Drug Allergies Allergy Verified 08/10/25 08:59 MEDICATIONS Ambulatory Orders Medication Instructions Recorded Confirmed L. acidophilus-Bifid. animalis 1 cap PO DAILY 08/10/25 08/10/25 ascorbate calcium (vitamin C) 1 tab PO DAILY 08/10/25 08/10/25 cetirizine 1 tab PO DAILY 08/10/2507/30 telmisartan 20 mg tablet 20 mg PO DAILY 08/10/2507/30 PHYSICAL EXAM AT DISCHARGE Vital Signs: Vital Signs x48h Temp Pulse Resp BP Pulse Ox 08/17/25 08:00 98.7 F 99 16 153/105 H 97 General Appearance: positive No acute distress and Alert; negative Anxious Eyes Bilateral: positive Normal inspection, PERRL and EOMI ENT: positive ENT inspection nml, Pharynx nml and No signs of dehydration Neck: positive Nml inspection, Thyroid nml and No JVD Respiratory: positive Chest non-tender, No respiratory distress and Breath sounds nml; negative Wheezes, Rales or Rhonchi Cardiovascular: positive Regular rate & rhythm, No murmur and No gallop; negative Tachycardia or Systolic murmur Abdomen: positive Non-tender, No organomegaly and No distention; negative Guarding or Splenomegaly Back: positive Nml inspection; negative CVA tenderness (R) or CVA tenderness (L) Skin: positive Other (Improving erythematous area of the right lower extremity, Nontender. 2+ edema. He is able to stand and bear weight without pain.) Extremities: positive Non-tender, Full ROM, Nml appearance and Pedal edema (2+ RLE, 1+ LLE) Neurologic/Psychiatric: positive Oriented x3, Motor nml and Mood/affect nml LABS 08/17/25 05:10 08/17/25 05:10 SEPSIS Current Stage of Sepsis: Severe sepsis Possible source of Sepsis: Skin/soft tissue Sepsis Criteria: Recorded Temperature greater than 38.3C or Less than 36C, Recorded Heart Rate greater than 90 bpm and WBC count greater than 12,000 or less than 4000 Discharge Plan Discharge Patient Disposition: 01 Home, Self Care Condition: Stable Prescriptions: Continued telmisartan 20 mg tablet 20 mg PO DAILY L. acidophilus-Bifid. animalis [Daily Probiotic] 1 cap PO DAILY ascorbate calcium (vitamin C) [Poonam-C] 1 tab PO DAILY cetirizine [Aller-Chel] 1 tab PO DAILY Activity Restrictions: Activity as Tolerated Diet: Regular Health Concerns: You have been diagnosed with Group B Streptococcus (GBS) bacteremia, a bloodstream infection caused by a type of bacteria. You are being discharged to continue intravenous (IV) antibiotic therapy at home with Ceftriaxone 2g daily. Antibiotic Therapy: - Continue IV antibiotics as prescribed. These will be continued once daily until 08/25. - Do not miss any doses. If you have any issues with your IV line or medication, contact your healthcare provider or [facility] immediately. Monitoring and Follow-Up: - Watch for signs of infection worsening, such as fever, chills, increasing fatigue, confusion, shortness of breath, or new pain. - Monitor your IV site for redness, swelling, pain, or drainage. - You will need regular follow-up appointments to monitor your progress and laboratory tests to ensure the infection is resolving. Complications and When to Seek Help: - Seek immediate medical attention if you develop severe symptoms such as chest pain, difficulty breathing, persistent vomiting, severe headache, or confusion. - Notify your provider if you notice any allergic reactions (rash, swelling, difficulty breathing) or side effects from antibiotics. General Care: - Maintain good hygiene, especially around your IV site. - Stay hydrated and eat a balanced diet to support recovery. - Avoid strenuous activity until cleared by your provider. As you also know, there was a bladder mass noted on your imaging. You will need close follow up with Urology. I've attached their contact information to this paperwork. Thank you for your much appreciated patient is a figure out authorization. I am glad it has all worked out, and I am glad that you have a great partner who is supportive and will help you out at home. We are glad you're feeling better. Thanks for allowing us to take care of you. Print Language: Swedish Patient Instructions: Ceftriaxone Injection, Sepsis Stand Alone Forms: PCP List Follow-up Care: Matias Ren MD [Primary Care Provider, Family Practice] Vitals documented within 30 minutes of discharge?: Yes"
--- NOTE | 2025-08-15 12:35 | PROVIDER PROGRESS NOTE ---
Subjective Subjective Subjective: Today, patient is feeling well. He notes no fevers or chills. He has a erythematous rash on his right lower extremity and some associated swelling, which may have worsened overnight. He states that compression stockings have been helping. He is eager to get his PICC line today, and go home. He understands that they are waiting on insurance authorization prior to him being able to go home. Current Medications Current Medications Current Medications: Current Medications Generic Name Dose Route Start Last Admin Trade Name Jeevanq PRN Reason Stop Dose Admin Acetaminophen 650 mg 08/10/25 10:50 08/11/25 03:34 Acetaminophen 325 Mg Tablet PO 650 mg Q4HR PRN Administration Pain 1 to 4, or Fever Cetirizine HCl 10 mg 08/11/25 09:00 08/15/25 08:01 Cetirizine 10 Mg Tablet PO 10 mg DAILY JARON Administration Famotidine 20 mg 08/11/25 09:00 08/15/25 08:01 Famotidine 20 Mg Tablet PO 20 mg BID JARON Administration Vancomycin HCl 1 gm/ Sodium 250 mls @ 167 mls/hr 08/12/25 22:00 08/15/25 10:51 Chloride IV 167 mls/hr Q12H JARON Administration Losartan Potassium 50 mg 08/13/25 13:00 08/15/25 08:01 Losartan 50 Mg Tablet PO 50 mg DAILY JARON Administration Melatonin 6 mg 08/10/25 20:00 08/14/25 21:19 Melatonin 3 Mg Tablet PO 6 mg Q24H JARON Administration Ondansetron HCl 4 mg 08/10/25 10:50 Ondansetron Odt 4 Mg Tablet TL Q6HR PRN Nausea / Vomiting Ondansetron HCl 4 mg 08/10/25 10:50 08/10/25 11:10 Ondansetron 4 Mg/2 Ml Vial IVP 4 mg Q6HR PRN Administration Nausea / Vomiting Sodium Chloride 10 ml 08/10/25 10:50 Sodium Chloride Flush 0.9% 10 Ml Syringe IVP PRN PRN NEEDED PER PROVIDER ORDERS Sodium Chloride 10 ml 08/10/25 17:00 08/15/25 08:02 Sodium Chloride Flush 0.9% 10 Ml Syringe IVP 10 ml 0100,0900,1700 JARON Administration Objective Vital Signs/Intake & Output Reviewed Vital Signs: Yes Vital Signs: Vital Signs x48h Temp Pulse Resp BP Pulse Ox 08/15/25 08:00 98.8 F 89 16 156/101 H 96 Intake & Output: Intake & Output 08/12/25 08/13/25 08/14/25 08/15/25 23:59 23:59 23:59 23:59 Intake Total 4512 / 4512 2760 / 2760 2019 660 / 660 Balance 4512 / 4512 2760 / 2760 2019 660 / 660 Objective General Appearance: positive No acute distress and Alert; negative Anxious Eyes Bilateral: positive Normal inspection, PERRL and EOMI ENT: positive ENT inspection nml, Pharynx nml and No signs of dehydration Neck: positive Nml inspection, Thyroid nml and No JVD Respiratory: positive Chest non-tender, No respiratory distress and Breath sounds nml; negative Wheezes, Rales or Rhonchi Cardiovascular: positive Regular rate & rhythm, No murmur and No gallop; negative Tachycardia or Systolic murmur Abdomen: positive Non-tender, No organomegaly and No distention; negative Guarding or Splenomegaly Back: positive Nml inspection; negative CVA tenderness (R) or CVA tenderness (L) Skin: positive Other (Improving erythematous area of the right lower extremity, Nontender. 2+ edema. He is able to stand and bear weight without pain.) Extremities: positive Non-tender, Full ROM, Nml appearance and Pedal edema (2+ RLE, 1+ LLE) Neurologic/Psychiatric: positive Oriented x3, Motor nml and Mood/affect nml Lab Results 08/15/25 04:28 08/15/25 04:28 Other Labs: Lab Results x24hrs 08/15/25 Range/Units 04:28 WBC 4.9 (4.8-10.8) x10^3/uL RBC 4.54 L (4.70-6.10) 10^6/uL Hgb 12.7 L (14.0-18.0) g/dL Hct 39.9 L (42.0-52.0) % MCV 87.9 (80.0-94.0) fL MCH 28.0 (27.0-31.0) pg MCHC 31.8 L (32.0-36.0) g/dL RDW 13.3 (12.0-15.0) % Plt Count 206 (130-450) 10^3/uL MPV 9.5 (7.4-11.4) fL Neut # (Auto) 2.8 (1.5-6.6) 10^3/uL Lymph # (Auto) 1.1 L (1.5-3.5) 10^3/uL Cross # (Auto) 0.6 (0.0-1.0) 10^3/uL Eos # (Auto) 0.3 (0.0-0.7) 10^3/uL Baso # (Auto) 0.0 (0.0-0.1) 10^3/uL Absolute Nucleated RBC 0.00 x10^3/uL Nucleated RBC % 0.0 /100WBC Sodium 140 (135-145) mmol/L Potassium 3.8 (3.5-4.5) mmol/L Chloride 111 (101-111) mmol/L Carbon Dioxide 22 (21-32) mmol/L Anion Gap 7.0 (6-13) BUN 11 (6-20) mg/dL Creatinine 0.9 (0.6-1.3) mg/dL Estimated GFR (MDRD) 83 L (>89) Glucose 93 (74-104) mg/dL Calcium 9.4 (8.5-10.3) mg/dL Sepsis Event Note (H) Evaluation Current Stage of Sepsis: Severe sepsis Possible source of Sepsis: positive Skin/soft tissue Sepsis Criteria Sepsis Criteria: Recorded Temperature greater than 38.3C or Less than 36C, Recorded Heart Rate greater than 90 bpm and WBC count greater than 12,000 or less than 4000 Assessment/Plan Problem List (1) Sepsis: Qualifiers: Sepsis acute organ dysfunction status: without acute organ dysfunction Sepsis type: Streptococcus group B Qualified Code(s): A40.1 - Sepsis due to streptococcus, group B (2) Bacteremia due to group B Streptococcus: Impression: The following is the plan for the above two diagnoses: Patient presented with fevers, chills, leukocytosis as high as 21.1. Blood cultures 2 out of 2 positive for Streptococcus Agalactiae on 08/09. Repeat blood cultures negative on 08/11. Echo with no obvious vegetations noted. Patient will need 2 weeks of antibiotics from date of negative blood cultures, tentative end of day 08/25. Continue vancomycin while here. Will switch to daptomycin in the outpatient. PICC line placed 08/15. Awaiting authorization for outpatient antibioitic therapy. Social work/case management following closely. Patient will be medically cleared for discharge once this has been appropriately set up. (3) Cellulitis of right leg: Impression: Proximal erythema of the right lower extremity has completely resolved. Continues to have swelling, warmth and erythema in right distal lower extremity from ankle to knee. Edema is worse in the right leg compared to left. CT was completed which showed soft tissue inflammation without abscess. DVT ultrasound has been ordered. Continue leg elevation at night, compression stockings., Continue frequent ambulation. (4) Hypertension: Impression: History of hypertension on telmisartan at home. Continue formulary ARB while here, losartan. Qualifiers: Hypertension type: unspecified Qualified Code(s): I10 - Essential (primary) hypertension (5) GERD (gastroesophageal reflux disease): Impression: Patient has a small hiatal hernia. History of GERD. He occasionally takes as needed antacids, continue scheduled famotidine 20 mg twice daily. (6) Bladder mass: Impression: Patient had a 2 cm soft tissue bladder mass that was seen on incidentally on CT of the right lower extremity. Unlikely contributing to his current presentation. Recommend short interval follow-up with urology, will either repeat imaging versus cystoscopy. Dr. Lackey was off over the weekend, would recommend calling him 08/15 to confirm follow-up plan. (7) Seasonal allergic conjunctivitis: Impression: Chronic problem for the patient. He usually uses Zyrtec for conjunctivitis. Discussed that he may consider transitioning to antihistamine eyedrops for less systemic effects in the future. For now he is tolerating well. Continue cetirizine 10 mg daily.
--- NOTE | 2025-08-15 14:33 | Ultrasound Report ---
PROCEDURE: US Venous Duplex RT INDICATIONS: swelling TECHNIQUE: Real-time imaging, as well as color and pulse Doppler interrogation, were performed of the lower extremity deep veins from the inguinal ligament to the popliteal fossa. Attempted visualization of the calf veins was performed. COMPARISON: None. FINDINGS: The deep veins are normally compressible, and free of intraluminal thrombus. Color and pulse Doppler demonstrate normal phasic intraluminal flow. There is normal augmentation response to distal compression maneuver. IMPRESSION: No deep venous thrombosis of the visualized lower extremity. Reviewed by: John Herrera MD on 08/15/2025 2:30 PM PST Approved by: John Herrera MD on 08/15/2025 2:30 PM PST Station ID: [id number]
[2025-08-15] MEDS: SODIUM CHLORIDE FLUSH 0.9% 10 ML SYRINGE IVP PRN (22:03)
[2025-08-16 04:54] LABS: HCT - HEMATOCRIT 38.7 % (42.0-52.0); HGB - HEMOGLOBIN 12.5 g/dL (14.0-18.0); MEAN PLATELET VOLUME 9.4 fL (7.4-11.4); PLT - PLATELET COUNT 226.0 10^3/uL (130-450); RED CELL DISTRIBUTION WIDTH 13.2 % (12.0-15.0)
[2025-08-16 05:11] LABS: BUN - BLOOD UREA NITROGEN 12.0 mg/dL (6-20); CARBON DIOXIDE - CO2 23.0 mmol/L (21-32); CREATININE 0.9 mg/dL (0.6-1.3); GFR - MDRD 83.0 (>89)
--- NOTE | 2025-08-16 14:39 | PROVIDER PROGRESS NOTE ---
Subjective Subjective Subjective: Today, patient is feeling well. He notes no fevers or chills. He has a erythematous rash on his right lower extremity and some associated swelling, which looks improved today. He understands that they are waiting on insurance authorization prior to him being able to go home. He has been calling his PCP's office himself. Case management has been following up on this as well. Current Medications Current Medications Current Medications: Current Medications Generic Name Dose Route Start Last Admin Trade Name Daniel PRN Reason Stop Dose Admin Acetaminophen 650 mg 08/10/25 10:50 08/11/25 03:34 Acetaminophen 325 Mg Tablet PO 650 mg Q4HR PRN Administration Pain 1 to 4, or Fever Cetirizine HCl 10 mg 08/11/25 09:00 08/16/25 08:10 Cetirizine 10 Mg Tablet PO 10 mg DAILY JARON Administration Famotidine 20 mg 08/11/25 09:00 08/16/25 08:10 Famotidine 20 Mg Tablet PO 20 mg BID JARON Administration Vancomycin HCl 1 gm/ Sodium 250 mls @ 167 mls/hr 08/12/25 22:00 08/16/25 11:00 Chloride IV Infused Q12H JARON Infusion Losartan Potassium 50 mg 08/13/25 13:00 08/16/25 08:10 Losartan 50 Mg Tablet PO 50 mg DAILY JARON Administration Melatonin 6 mg 08/10/25 20:00 08/15/25 21:08 Melatonin 3 Mg Tablet PO 6 mg Q24H JARON Administration Ondansetron HCl 4 mg 08/10/25 10:50 Ondansetron Odt 4 Mg Tablet TL Q6HR PRN Nausea / Vomiting Ondansetron HCl 4 mg 08/10/25 10:50 08/10/25 11:10 Ondansetron 4 Mg/2 Ml Vial IVP 4 mg Q6HR PRN Administration Nausea / Vomiting Sodium Chloride 10 ml 08/10/25 10:50 08/15/25 22:03 Sodium Chloride Flush 0.9% 10 Ml Syringe IVP 10 ml PRN PRN Administration NEEDED PER PROVIDER ORDERS Sodium Chloride 10 ml 08/10/25 17:00 08/16/25 08:11 Sodium Chloride Flush 0.9% 10 Ml Syringe IVP 10 ml 0100,0900,1700 JARON Administration Objective Vital Signs/Intake & Output Reviewed Vital Signs: Yes Vital Signs: Vital Signs x48h Temp Pulse Resp BP Pulse Ox 08/16/25 08:05 98.6 F 87 18 151/98 H 96 Intake & Output: Intake & Output 08/13/25 08/14/25 08/15/25 08/16/25 23:59 23:59 23:59 23:59 Intake Total 2760 / 2760 2019 2160 / 2160 1250 / 1250 Balance 2760 / 2760 2019 2160 / 2160 1250 / 1250 Objective General Appearance: positive No acute distress and Alert; negative Anxious Eyes Bilateral: positive Normal inspection, PERRL and EOMI ENT: positive ENT inspection nml, Pharynx nml and No signs of dehydration Neck: positive Nml inspection, Thyroid nml and No JVD Respiratory: positive Chest non-tender, No respiratory distress and Breath sounds nml; negative Wheezes, Rales or Rhonchi Cardiovascular: positive Regular rate & rhythm, No murmur and No gallop; negative Tachycardia or Systolic murmur Abdomen: positive Non-tender, No organomegaly and No distention; negative Guarding or Splenomegaly Back: positive Nml inspection; negative CVA tenderness (R) or CVA tenderness (L) Skin: positive Other (Improving erythematous area of the right lower extremity, Nontender. 2+ edema. He is able to stand and bear weight without pain.) Extremities: positive Non-tender, Full ROM, Nml appearance and Pedal edema (2+ RLE, 1+ LLE) Neurologic/Psychiatric: positive Oriented x3, Motor nml and Mood/affect nml Lab Results 08/16/25 04:42 08/16/25 04:42 Other Labs: Lab Results x24hrs 08/16/25 Range/Units 04:42 WBC 6.0 (4.8-10.8) x10^3/uL RBC 4.40 L (4.70-6.10) 10^6/uL Hgb 12.5 L (14.0-18.0) g/dL Hct 38.7 L (42.0-52.0) % MCV 88.0 (80.0-94.0) fL MCH 28.4 (27.0-31.0) pg MCHC 32.3 (32.0-36.0) g/dL RDW 13.2 (12.0-15.0) % Plt Count 226 (130-450) 10^3/uL MPV 9.4 (7.4-11.4) fL Sodium 139 (135-145) mmol/L Potassium 3.8 (3.5-4.5) mmol/L Chloride 110 (101-111) mmol/L Carbon Dioxide 23 (21-32) mmol/L Anion Gap 6.0 (6-13) BUN 12 (6-20) mg/dL Creatinine 0.9 (0.6-1.3) mg/dL Estimated GFR (MDRD) 83 L (>89) Glucose 92 (74-104) mg/dL Calcium 9.3 (8.5-10.3) mg/dL Magnesium 2.0 (1.7-2.3) mg/dL Sepsis Event Note (H) Evaluation Current Stage of Sepsis: Severe sepsis Possible source of Sepsis: positive Skin/soft tissue Sepsis Criteria Sepsis Criteria: Recorded Temperature greater than 38.3C or Less than 36C, Recorded Heart Rate greater than 90 bpm and WBC count greater than 12,000 or less than 4000 Assessment/Plan Problem List (1) Sepsis: Qualifiers: Sepsis type: Streptococcus group B Sepsis acute organ dysfunction status: without acute organ dysfunction Qualified Code(s): A40.1 - Sepsis due to streptococcus, group B (2) Bacteremia due to group B Streptococcus: Impression: The following is the plan for the above two diagnoses: Patient presented with fevers, chills, leukocytosis as high as 21.1. Blood cultures 2 out of 2 positive for Streptococcus Agalactiae on 08/09. Repeat blood cultures negative on 08/11. Echo with no obvious vegetations noted. Patient will need 2 weeks of antibiotics from date of negative blood cultures, tentative end of day 08/25. Continue vancomycin while here. Will switch to daptomycin in the outpatient. PICC line placed 08/15. Awaiting authorization for outpatient antibioitic therapy. Social work/case management following closely. Patient will be medically cleared for discharge once this has been appropriately set up. (3) Cellulitis of right leg: Impression: Proximal erythema of the right lower extremity has completely resolved. Continues to have swelling, warmth and erythema in right distal lower extremity from ankle to knee. Edema is worse in the right leg compared to left. Improving daily. CT was completed which showed soft tissue inflammation without abscess. DVT ultrasound has been ordered, was negative for DVT. Continue leg elevation at night, compression stockings., Continue frequent ambulation. (4) Hypertension: Impression: History of hypertension on telmisartan at home. Continue formulary ARB while here, losartan. Qualifiers: Hypertension type: unspecified Qualified Code(s): I10 - Essential (primary) hypertension (5) GERD (gastroesophageal reflux disease): Impression: Patient has a small hiatal hernia. History of GERD. He occasionally takes as needed antacids, continue scheduled famotidine 20 mg twice daily. (6) Bladder mass: Impression: Patient had a 2 cm soft tissue bladder mass that was seen on incidentally on CT of the right lower extremity. Unlikely contributing to his current presentation. Recommend short interval follow-up with urology, will either repeat imaging versus cystoscopy. Dr. Lackey was off over the weekend, would recommend calling him 08/15 to confirm follow-up plan. (7) Seasonal allergic conjunctivitis: Impression: Chronic problem for the patient. He usually uses Zyrtec for conjunctivitis. Discussed that he may consider transitioning to antihistamine eyedrops for less systemic effects in the future. For now he is tolerating well. Continue cetirizine 10 mg daily.
[2025-08-17 05:17] LABS: HCT - HEMATOCRIT 38.4 % (42.0-52.0); HGB - HEMOGLOBIN 12.8 g/dL (14.0-18.0); MEAN PLATELET VOLUME 9.3 fL (7.4-11.4); PLT - PLATELET COUNT 231.0 10^3/uL (130-450); RED CELL DISTRIBUTION WIDTH 13.2 % (12.0-15.0)
[2025-08-17 05:34] LABS: BUN - BLOOD UREA NITROGEN 10.0 mg/dL (6-20); CARBON DIOXIDE - CO2 24.0 mmol/L (21-32); CREATININE 0.9 mg/dL (0.6-1.3); GFR - MDRD 83.0 (>89)
[2025-08-17 15:12] VITALS: BP 150/95; TEMP 98.1; O2SAT 98
== END 2025-08-17 15:12 | disposition home or self-care (01) | DRG 872 ==
LOC: ED 20:45 → ICU 08-10 10:20
PROVIDERS: ADMIT Student in an Organized Health Care Education/Training Program; ATTEND Student in an Organized Health Care Education/Training Program
DX: L03.115 Cellulitis of right lower limb; J43.9 Emphysema, unspecified; K21.00 Gastro-esophageal reflux disease with esophagitis, without bleeding; R65.20 Severe sepsis without septic shock; H10.45 Other chronic allergic conjunctivitis; K21.9 Gastro-esophageal reflux disease without esophagitis; K57.30 Diverticulosis of large intestine without perforation or abscess without bleeding; K44.9 Diaphragmatic hernia without obstruction or gangrene; A40.1 Sepsis due to streptococcus, group B; I10 Essential (primary) hypertension; Z66 Do not resuscitate; N32.9 Bladder disorder, unspecified